=== PATIENT | male | born 1950 | race Caucasian/White ===

== ENCOUNTER → 2018-12-15 | Outpatient (CLI) | payer MEDICARE, OTHER ==
--- NOTE | 2018-12-15 16:04 | US ---
EXAMINATION TYPE: US scrotum with doppler. Grayscale and color Doppler Duplex imaging performed of t he scrotum. DATE OF EXAM: 12/15/2018 COMPARISON: NONE CLINICAL HISTORY: N50.819 Testicular pain. Right side pain lateral to right teste. Hx vasectomy at a ge 32. Hx right inguinal hernia with mesh x 3 years ago EXAM MEASUREMENTS: TESTICLES: Right Testicle: 4.1 x 3.3 x 2.5 cm Left Testicle: 3.4 x 2.8 x 3.3 cm EPIDIDYMIS HEAD: Right Epididymis: 0.8 x 1.1 x 0.8 cm Left Epididymis: 1.1 x 1.2 x 0.8 cm Doppler performed to assess for testicular vascularity; good bilateral color flow and waveforms are s een. There is no evidence of testicular torsion. Presence of hydroceles: small bilaterally Presence of varicoceles: no Area of pain scanned. Possible break visualized with bowel seen. IMPRESSION: 1. Small hydroceles noted bilaterally. No evidence for lesion or torsion. 2. Possible right inguinal hernia. Correlate clinically.
== END | disposition home or self-care (01) ==
LOC: RADUSWWP 15:20
PROVIDERS: ATTEND Family Medicine
DX: N43.3 Hydrocele, unspecified (principal)
CPT/HCPCS: 76870; 93975

== ENCOUNTER 2019-02-26 08:22 | Emergency (ER) | payer MEDICARE, OTHER ==
[2019-02-26 08:26] VITALS: RESP 18; TEMP 97.8
[2019-02-26] MEDS ORDERED: SODIUM CHLORIDE 0.9% 1,000 ML IV STA (08:33)
[2019-02-26] MEDS ORDERED: ONDANSETRON 4 MG/2 ML VIAL IVP STA (08:33)
[2019-02-26] MEDS ORDERED: MAG HYDROX/AL HYDROX/SIMETH 30 ML, HYOSCYAMINE ELIXIR 10 ML, CIMETIDINE HCL 300 MG, LID... PO STA ×4 (08:35)
[2019-02-26] MEDS ORDERED: PANTOPRAZOLE 40 MG/10 ML VIAL IVP STA (08:35)
--- NOTE | 2019-02-26 08:58 | ED ---
Abdominal Pain HPI - General Source: patient, RN notes reviewed Mode of arrival: ambulatory Limitations: no limitations <Christiano Bernstein - Last Filed: 02/26/19 10:42> <El Ly - Last Filed: 02/26/19 13:49> - General Chief Complaint: Abdominal Pain Stated Complaint: epigastric pain Time Seen by Provider: 02/26/19 08:28 - History of Present Illness Initial Comments: This a 68-year-old male presents emergency Department with chief complaint of epigastric abdominal discomfort. Patient states has been bothersome for last few days states it is a burning sensation radiate up into his chest. Patient states he did take some Pepcid last night which improved his symptoms. Patient has had a prior colostomy no prior EGD. Patient denies, chills, melena, hematochezia. Patient had some nausea no vomiting. Patient complains no chest pain or shortness breath this time. (Christiano Bernstein) - Related Data Home Medications Medication Instructions Recorded Confirmed Albuterol Sulfate [Proair Hfa] 2 puff INHALATION RT-Q6H PRN 02/26/19 02/26/19 Azelastine HCl [Astepro] 2 spray EA NOSTRIL DAILY 02/26/19 02/26/19 Desloratadine [Clarinex] 5 mg PO DAILY 02/26/19 02/26/19 Fosinopril Sodium [Monopril] 20 mg PO DAILY 02/26/19 02/26/19 Polyethylene Glycol 3350 [Miralax] 17 gm PO DAILY PRN 02/26/19 02/26/19 Tadalafil [Cialis] 20 mg PO DAILY 02/26/19 02/26/19 Tamsulosin [Flomax] 0.4 mg PO DAILY 02/26/19 02/26/19 Previous Rx's Medication Instructions Recorded Omeprazole 40 mg PO DAILY #14 capsule. 02/26/19 Allergies Allergy/AdvReac Type Severity Reaction Status Date / Time hydrocodone bitartrate Allergy Rash/Hives Verified 02/26/19 09:33 [From Vicodin] Review of Systems ROS Other: All systems not noted in ROS Statement are negative. <Christiano Bernstein - Last Filed: 02/26/19 10:42> ROS Other: All systems not noted in ROS Statement are negative. <El Ly - Last Filed: 02/26/19 13:49> ROS Statement: Those systems with pertinent positive or pertinent negative responses have been documented in the HPI. Past Medical History Past Medical History: Hypertension, Osteoarthritis (OA) Additional Past Medical History / Comment(s): retinal detachment History of Any Multi-Drug Resistant Organisms: None Reported Past Surgical History: Hernia Repair, Joint Replacement, Orthopedic Surgery Additional Past Surgical History / Comment(s): numerous knee and geo feet, inguinal hernia Past Psychological History: No Psychological Hx Reported Smoking Status: Never smoker Past Alcohol Use History: None Reported Past Drug Use History: None Reported <Christiano Bernstein - Last Filed: 02/26/19 10:42> General Exam Limitations: no limitations General appearance: alert, in no apparent distress Head exam: Present: atraumatic, normocephalic, normal inspection Eye exam: Present: normal appearance, PERRL, EOMI. Absent: scleral icterus, conjunctival injection, periorbital swelling ENT exam: Present: normal exam, mucous membranes moist Neck exam: Present: normal inspection. Absent: tenderness, meningismus, lymphadenopathy Respiratory exam: Present: normal lung sounds bilaterally. Absent: respiratory distress, wheezes, rales, rhonchi, stridor Cardiovascular Exam: Present: regular rate, normal rhythm, normal heart sounds. Absent: systolic murmur, diastolic murmur, rubs, gallop, clicks GI/Abdominal exam: Present: soft, tenderness (Mild epigastric, left upper quadrant), normal bowel sounds. Absent: distended, guarding, rebound, rigid Back exam: Absent: CVA tenderness (R), CVA tenderness (L) Skin exam: Present: warm, dry, intact, normal color. Absent: rash <Christiano Bernstein - Last Filed: 02/26/19 10:42> Course <Christiano Bernstein - Last Filed: 02/26/19 10:42> <El Ly - Last Filed: 02/26/19 13:49> Vital Signs 02/26/19 02/26/19 08:24 11:11 Temperature 97.8 F 97.8 F Pulse Rate 77 70 Respiratory 18 18 Rate Blood Pressure 158/91 116/77 O2 Sat by Pulse 98 95 Oximetry - Reevaluation(s) Reevaluation #1: 02/26/19 10:42 Patient reevaluated and updated on results. Patient improved after GI cocktail. (Christiano Bernstein) Reevaluation #2: 02/26/19 13:48 PA supervision: I personally evaluate this case including the history and physical aspects. Patient does present with symptoms consistent with GERD. I do agree with the assessment and plan. (El Ly) Medical Decision Making - Lab Data Result diagrams: 02/26/19 09:25 02/26/19 09:25 <Christiano Bernstein - Last Filed: 02/26/19 10:42> - Lab Data Result diagrams: 02/26/19 09:25 02/26/19 09:25 <El Ly - Last Filed: 02/26/19 13:49> - Medical Decision Making 68 show male presented for abdominal discomfort, reflux issues. Patient had lab work, x-ray will have a hernia, EKG and urinalysis. Labs, urinalysis and EKG unremarkable. Patient improved after GI cocktail. Patient will be discharged on omeprazole. he'll follow-up with on-call GI and return for any worsening symptoms. (Christiano Bernstein) - Lab Data Lab Results 02/26/19 02/26/19 02/26/19 Range/Units 09:25 09:25 09:25 WBC 6.5 (3.8-10.6) k/uL RBC 4.34 (4.30-5.90) m/uL Hgb 14.2 (13.0-17.5) gm/dL Hct 41.5 (39.0-53.0) % MCV 95.7 (80.0-100.0) fL MCH 32.8 (25.0-35.0) pg MCHC 34.3 (31.0-37.0) g/dL RDW 13.3 (11.5-15.5) % Plt Count 226 (150-450) k/uL Neutrophils % 66 % Lymphocytes % 21 % Monocytes % 8 % Eosinophils % 1 % Basophils % 0 % Neutrophils # 4.3 (1.3-7.7) k/uL Lymphocytes # 1.4 (1.0-4.8) k/uL Monocytes # 0.5 (0-1.0) k/uL Eosinophils # 0.1 (0-0.7) k/uL Basophils # 0.0 (0-0.2) k/uL Sodium 141 (137-145) mmol/L Potassium 4.3 (3.5-5.1) mmol/L Chloride 107 (98-107) mmol/L Carbon Dioxide 27 (22-30) mmol/L Anion Gap 7 mmol/L BUN 12 (9-20) mg/dL Creatinine 0.95 (0.66-1.25) mg/dL Est GFR (CKD-EPI)AfAm >90 (>60 ml/min/1.73 sqM) Est GFR (CKD-EPI)NonAf 84 (>60 ml/min/1.73 sqM) Glucose 99 (74-99) mg/dL Calcium 9.8 (8.4-10.2) mg/dL Total Bilirubin 0.9 (0.2-1.3) mg/dL AST 21 (17-59) U/L ALT 32 (21-72) U/L Alkaline Phosphatase 135 H (38-126) U/L Troponin I <0.012 (0.000-0.034) ng/mL Total Protein 6.8 (6.3-8.2) g/dL Albumin 4.0 (3.5-5.0) g/dL Lipase 80 (23-300) U/L Urine Color Urine Appearance (Clear) Urine pH (5.0-8.0) Ur Specific [place] (1.001-1.035) Urine Protein (Negative) Urine Glucose (UA) (Negative) Urine Ketones (Negative) Urine Blood (Negative) Urine Nitrite (Negative) Urine Bilirubin (Negative) Urine Urobilinogen (<2.0) mg/dL Ur Leukocyte Esterase (Negative) Urine RBC (0-5) /hpf Urine WBC (0-5) /hpf Hyaline Casts (0-2) /lpf Urine Mucus (None) /hpf 02/26/19 Range/Units 10:20 WBC (3.8-10.6) k/uL RBC (4.30-5.90) m/uL Hgb (13.0-17.5) gm/dL Hct (39.0-53.0) % MCV (80.0-100.0) fL MCH (25.0-35.0) pg MCHC (31.0-37.0) g/dL RDW (11.5-15.5) % Plt Count (150-450) k/uL Neutrophils % % Lymphocytes % % Monocytes % % Eosinophils % % Basophils % % Neutrophils # (1.3-7.7) k/uL Lymphocytes # (1.0-4.8) k/uL Monocytes # (0-1.0) k/uL Eosinophils # (0-0.7) k/uL Basophils # (0-0.2) k/uL Sodium (137-145) mmol/L Potassium (3.5-5.1) mmol/L Chloride (98-107) mmol/L Carbon Dioxide (22-30) mmol/L Anion Gap mmol/L BUN (9-20) mg/dL Creatinine (0.66-1.25) mg/dL Est GFR (CKD-EPI)AfAm (>60 ml/min/1.73 sqM) Est GFR (CKD-EPI)NonAf (>60 ml/min/1.73 sqM) Glucose (74-99) mg/dL Calcium (8.4-10.2) mg/dL Total Bilirubin (0.2-1.3) mg/dL AST (17-59) U/L ALT (21-72) U/L Alkaline Phosphatase (38-126) U/L Troponin I (0.000-0.034) ng/mL Total Protein (6.3-8.2) g/dL Albumin (3.5-5.0) g/dL Lipase (23-300) U/L Urine Color Yellow Urine Appearance Clear (Clear) Urine pH 5.5 (5.0-8.0) Ur Specific [place] 1.020 (1.001-1.035) Urine Protein Negative (Negative) Urine Glucose (UA) Negative (Negative) Urine Ketones 1+ H (Negative) Urine Blood Small H (Negative) Urine Nitrite Negative (Negative) Urine Bilirubin Negative (Negative) Urine Urobilinogen <2.0 (<2.0) mg/dL Ur Leukocyte Esterase Negative (Negative) Urine RBC 4 (0-5) /hpf Urine WBC 1 (0-5) /hpf Hyaline Casts 18 H (0-2) /lpf Urine Mucus Few H (None) /hpf 02/26/19 10:44 EKG performed at 8:55 sinus rhythm with PVC, rate of 79 ND 134 QRS 72 QT s/QTC 376/431 (Christiano Bernstein) Disposition Is patient prescribed a controlled substance at d/c from ED?: No Time of Disposition: 10:44 <Christiano Bernstein - Last Filed: 02/26/19 10:42> <El Ly - Last Filed: 02/26/19 13:49> Clinical Impression: GERD (gastroesophageal reflux disease) Disposition: HOME SELF-CARE Condition: Stable Instructions (If sedation given, give patient instructions): Diet for Stomach Ulcers and Gastritis (ED), Gastroesophageal Reflux Disease (ED) Additional Instructions: Please return to the Emergency Department if symptoms worsen or any other concerns. Prescriptions: Omeprazole 40 mg PO DAILY #14 capsule.dr Referrals: Grace Bass III, MD [Primary Care Provider] - 1-2 days Donna Thompson MD [STAFF PHYSICIAN] - 1-2 days
[2019-02-26 09:35] LABS: Basophils % (A) 0 %; Eosinophils # (A) 0.1 k/uL (0-0.7); Eosinophils % (A) 1 %; HCT 41.5 % (39.0-53.0); HGB 14.2 gm/dL (13.0-17.5); Lymphocytes # (A) 1.4 k/uL (1.0-4.8); Lymphocytes % (A) 21 %; MCH 32.8 pg (25.0-35.0); MCHC 34.3 g/dL (31.0-37.0); MCV 95.7 fL (80.0-100.0); Mean Platelet Volume 6.9; Monocytes # (A) 0.5 k/uL (0-1.0); Monocytes % (A) 8 %; Neutrophils # (A) 4.3 k/uL (1.3-7.7); Neutrophils % (A) 66 %; Platelet Count 226 k/uL (150-450); RBC 4.34 m/uL (4.30-5.90); RDW 13.3 % (11.5-15.5); WBC 6.5 k/uL (3.8-10.6)
[2019-02-26 09:48] LABS: ALT 32 U/L (21-72); AST 21 U/L (17-59); Alkaline Phosphatase 135 U/L (38-126); Anion Gap 7 mmol/L; Blood Urea Nitrogen 12 mg/dL (9-20); Calcium 9.8 mg/dL (8.4-10.2); Carbon Dioxide 27 mmol/L (22-30); Chloride 107 mmol/L (98-107); Glucose 99 mg/dL (74-99); Lipase 80 U/L (23-300); Potassium 4.3 mmol/L (3.5-5.1); Sodium 141 mmol/L (137-145); Total Bilirubin 0.9 mg/dL (0.2-1.3); Total Protein 6.8 g/dL (6.3-8.2)
--- NOTE | 2019-02-26 10:27 | XR ---
EXAMINATION TYPE: XR chest 1V DATE OF EXAM: 02/26/2019 COMPARISON: NONE HISTORY: 68-year-old male with chest pain TECHNIQUE: Single frontal view of the chest is obtained. FINDINGS: Heart normal size. Aorta and pulmonary vasculature within normal limits. Mild interstitial prominence has a chronic appearance. Some stranding areas of atelectasis are present particularly at the left b ase. No consolidation or pleural effusion seen. IMPRESSION: Chronic appearing changes and some strandy areas of atelectasis. No definite acute process.
--- NOTE | 2019-02-26 10:28 | XR ---
EXAMINATION TYPE: XR KUB DATE OF EXAM: 02/26/2019 CLINICAL DATA: 68-year-old male for abdominal pain, [facility] COMPARISON: None FINDINGS: Lung bases are clear. No evidence for free intraperitoneal air. No dilated small bowel with differential air-fluid levels. Scattered air throughout the colon extending distally to the rectum. Mild stool in the cecum area. No suspicious calcifications seen. Suspect medication tablet in the right lower quadrant. IMPRESSION: No evidence for free air or bowel obstruction.
[2019-02-26 10:35] LABS: Appearance,Urine Clear (Clear); Bilirubin,Urine Negative (Negative); Blood,Urine Small (Negative); Color,Urine Yellow; Glucose,Urine (UA) Negative (Negative); Hyaline Casts,Urine 18 /lpf (0-2); Ketones,Urine 1+ (Negative); Leukocyte Esterase,Urine Negative (Negative); Mucus,Urine Few /hpf; Nitrite,Urine Negative (Negative); PH, Urine 5.5 (5.0-8.0); Protein,Urine Negative (Negative); RBC,Urine 4 /hpf (0-5); Urobilinogen,Urine <2.0 mg/dL (<2.0); WBC,Urine 1 /hpf (0-5)
[2019-02-26 11:13] VITALS: BP 116/77; PULSE 70
== END 2019-02-26 11:11 | disposition home or self-care (01) ==
LOC: EC 08:22
DX: K21.9 Gastro-esophageal reflux disease without esophagitis (principal); R10.13 Epigastric pain; R10.12 Left upper quadrant pain; R11.0 Nausea; I10 Essential (primary) hypertension; M19.90 Unspecified osteoarthritis, unspecified site; Z79.899 Other long term (current) drug therapy; Z88.5 Allergy status to narcotic agent
CPT/HCPCS: 36415; 93005; 80053; 83690; 84484; 85025; 81001; 71045; 74018; 99284; 96374; 96375; 96361 ×2; J2405; C9113

== ENCOUNTER → 2020-10-25 | Outpatient (CLI) | payer MEDICARE | END | disposition home or self-care (01) | LOC: LABWHC1 09:07 | PROVIDERS: ATTEND Nurse Practitioner Family | DX: R50.9 Fever, unspecified (principal) | CPT/HCPCS: 87502; U0003; C9803 ==

== ENCOUNTER 2020-11-02 15:42 | Inpatient (IN) | payer MEDICARE ==
[2020-11-02] MEDS ORDERED: SODIUM CHLORIDE 0.9% 1,000 ML IV ONE (16:46)
[2020-11-02 16:56] LABS: Basophils # (A) 0.2 k/uL (0-0.2); Basophils % (A) 2 %; Eosinophils % (A) 0 %; HCT 41.9 % (39.0-53.0); HGB 14.6 gm/dL (13.0-17.5); Lymphocytes # (A) 0.9 k/uL (1.0-4.8); Lymphocytes % (A) 10 %; MCH 31.7 pg (25.0-35.0); MCHC 34.7 g/dL (31.0-37.0); MCV 91.4 fL (80.0-100.0); Mean Platelet Volume 7.8; Monocytes # (A) 0.5 k/uL (0-1.0); Monocytes % (A) 5 %; Neutrophils # (A) 7.2 k/uL (1.3-7.7); Neutrophils % (A) 81 %; Platelet Count 264 k/uL (150-450); RBC 4.59 m/uL (4.30-5.90); RDW 12.5 % (11.5-15.5); WBC 8.9 k/uL (3.8-10.6)
[2020-11-02 17:07] LABS: ALT 37 U/L (4-49); AST 62 U/L (17-59); African American GFR (CKD) >90 (>60 ml/min/1.73 sqM); Albumin 3.3 g/dL (3.5-5.0); Alkaline Phosphatase 137 U/L (38-126); Anion Gap 6 mmol/L; Blood Urea Nitrogen 12 mg/dL (9-20); Calcium 9.4 mg/dL (8.4-10.2); Carbon Dioxide 31 mmol/L (22-30); Chloride 100 mmol/L (98-107); Glucose 113 mg/dL (74-99); LDH 1224 U/L (313-618); Non-African American GFR(CKD) >90 (>60 ml/min/1.73 sqM); Potassium 3.6 mmol/L (3.5-5.1); Sodium 137 mmol/L (137-145); Total Bilirubin 0.8 mg/dL (0.2-1.3)
--- NOTE | 2020-11-02 17:08 | XR ---
EXAMINATION TYPE: XR chest 1V portable DATE OF EXAM: 11/02/2020 COMPARISON: 02/26/2019 HISTORY: Fever. Cough. TECHNIQUE: FINDINGS: There is patchy airspace infiltrate in both lower lobes and more on the right side. There i s no heart failure. Heart size is normal. There is no definite pleural effusion. Bony thorax appears intact. IMPRESSION: There is bilateral pneumonia that is new compared to old exam. Normal heart.
[2020-11-02 17:09] LABS: Partial Thromboplastin Time 23.9 sec (22.0-30.0); Prothrombin Time 10.7 sec (9.0-12.0)
[2020-11-02 17:15] LABS: D-Dimer 2.31 mg/L FEU (<0.60)
[2020-11-02 17:21] LABS: C Reactive Protein 189.5 mg/L (<10.0)
[2020-11-02] MEDS ORDERED: NALOXONE 0.4 MG/ML 1 ML VIAL IV PRN (18:05)
[2020-11-02] MEDS ORDERED: ACETAMINOPHEN TAB 325 MG TAB PO PRN (18:05)
--- NOTE | 2020-11-02 18:05 | ED ---
Fever HPI - General Chief Complaint: Fever Stated Complaint: Covid Positive Time Seen by Provider: 11/02/20 16:00 Source: patient Limitations: no limitations - History of Present Illness Initial Comments: Patient is a 70-year-old male with past medical history of hypertension resents emergency department with reported shortness of breath and fever. Patient states he's been feeling ill for approximately 2 weeks. Patient states that he tested positive for covid on the . Over the past week he has had increased fever, cough and congestion. Also reports to substernal chest pain. Patient denies previous history of underlying lung conditions. No history of oxygen dependence. Denies any cardiac history. He denies nausea, vomiting or diarrhea. No other alleviating, precipitating or modifying factors - Related Data Home Medications Medication Instructions Recorded Confirmed Desloratadine [Clarinex] 5 mg PO DAILY 02/26/19 11/02/20 Tadalafil [Cialis] 20 mg PO Q36H PRN 02/26/19 11/02/20 Cholecalciferol (Vitamin D3) 125 mcg PO DAILY 11/02/20 11/02/20 [Vitamin D3] Fosinopril [Monopril] 10 mg PO DAILY 11/02/20 11/02/20 Multivit-Min/FA/Lycopen/Lutein 1 tab PO DAILY 11/02/20 11/02/20 [Centrum Silver Men Tablet] guaiFENesin-Coden 100-10MG/5ML 10 ml PO Q8H PRN 11/02/20 11/02/20 [Robitussin AC] Previous Rx's Medication Instructions Recorded Acetaminophen Tab [Tylenol] 650 mg PO Q6HR PRN tab 11/05/20 Ascorbic Acid [Vitamin C] 500 mg PO BID 30 Days #60 tab 11/05/20 Famotidine [Pepcid] 40 mg PO DAILY 30 Days #60 tab 11/05/20 Zinc Sulfate [Orazinc] 220 mg PO DAILY 30 Days #30 cap 11/05/20 dexAMETHasone [Hexadrol] 6 mg PO DAILY 8 Days #24 tab 11/05/20 polyethylene glycoL 3350 [Miralax] 17 gm PO DAILY powd.pack 11/05/20 Allergies Allergy/AdvReac Type Severity Reaction Status Date / Time hydrocodone bitartrate Allergy Rash/Hives Verified 11/02/20 18:35 [From Vicodin] Review of Systems ROS Statement: Those systems with pertinent positive or pertinent negative responses have been documented in the HPI. ROS Other: All systems not noted in ROS Statement are negative. Past Medical History Past Medical History: Hypertension, Osteoarthritis (OA) Additional Past Medical History / Comment(s): retinal detachment History of Any Multi-Drug Resistant Organisms: None Reported Past Surgical History: Bariatric Surgery, Hernia Repair, Joint Replacement, Orthopedic Surgery Additional Past Surgical History / Comment(s): numerous knee and geo feet, inguinal hernia Past Psychological History: No Psychological Hx Reported Smoking Status: Never smoker Past Alcohol Use History: None Reported Past Drug Use History: None Reported - Past Family History Mother Additional Family Medical History / Comment(s): hiatal hernia General Exam Limitations: no limitations General appearance: alert, in no apparent distress Head exam: Present: atraumatic, normocephalic, normal inspection Eye exam: Present: normal appearance, PERRL, EOMI. Absent: scleral icterus, conjunctival injection, periorbital swelling ENT exam: Present: normal exam, mucous membranes moist Neck exam: Present: normal inspection. Absent: tenderness, meningismus, lymphadenopathy Respiratory exam: Present: normal lung sounds bilaterally. Absent: respiratory distress, wheezes, rales, rhonchi, stridor Cardiovascular Exam: Present: regular rate, normal rhythm, normal heart sounds. Absent: systolic murmur, diastolic murmur, rubs, gallop, clicks GI/Abdominal exam: Present: soft, normal bowel sounds. Absent: distended, tenderness, guarding, rebound, rigid Extremities exam: Present: normal inspection, full ROM, normal capillary refill. Absent: tenderness, pedal edema, joint swelling, calf tenderness Back exam: Present: normal inspection Neurological exam: Present: alert, oriented X3, CN II-XII intact Psychiatric exam: Present: normal affect, normal mood Skin exam: Present: warm, dry, intact, normal color. Absent: rash Course Vital Signs 11/02/20 11/02/20 11/02/20 15:58 16:57 17:02 Temperature 99.9 F H Pulse Rate 96 75 Respiratory 20 18 Rate Blood Pressure 143/80 137/82 O2 Sat by Pulse 89 L 97 89 L Oximetry 11/02/20 11/02/20 11/02/20 17:03 18:52 19:00 Temperature 102 F H Pulse Rate 77 Respiratory 20 21 Rate Blood Pressure 142/95 143/81 O2 Sat by Pulse 97 95 Oximetry 11/02/20 11/02/20 19:32 19:34 Temperature 99.5 F Pulse Rate 73 Respiratory 18 Rate Blood Pressure 139/82 O2 Sat by Pulse Oximetry Medical Decision Making - Medical Decision Making Upon arrival patient is placed into room 5. Thorough history and physical exam was performed. Patient arrives and is hypoxic, 89% on room air. He is placed on nasal cannula. Laboratory studies were conducted and reviewed. D-dimer is 2.3. Lactic acid 2.1. Chest x-ray demonstrates bilateral pneumonia. CT of the patient's chest demonstrates no acute pulmonary embolism. Because the patient's hypoxia I did recommend hospital physician for which the patient did agree to. Decadron, zinc, vitamin C ordered. I will place pulmonology on consult. Patient agreed to the treatment plan. Discussed case with Dr. Sexton who accepted admission. He remained in stable condition awaiting a bed on the floor - Lab Data Result diagrams: 11/03/20 06:20 11/05/20 06:15 Lab Results 11/02/20 11/02/20 11/02/20 Range/Units 00:39 16:44 16:44 WBC 8.9 (3.8-10.6) k/uL RBC 4.59 (4.30-5.90) m/uL Hgb 14.6 (13.0-17.5) gm/dL Hct 41.9 (39.0-53.0) % MCV 91.4 (80.0-100.0) fL MCH 31.7 (25.0-35.0) pg MCHC 34.7 (31.0-37.0) g/dL RDW 12.5 (11.5-15.5) % Plt Count 264 (150-450) k/uL MPV 7.8 Neutrophils % 81 % Lymphocytes % 10 % Monocytes % 5 % Eosinophils % 0 % Basophils % 2 % Neutrophils # 7.2 (1.3-7.7) k/uL Lymphocytes # 0.9 L (1.0-4.8) k/uL Monocytes # 0.5 (0-1.0) k/uL Eosinophils # 0.0 (0-0.7) k/uL Basophils # 0.2 (0-0.2) k/uL PT 10.7 (9.0-12.0) sec INR 1.0 (<1.2) APTT 23.9 (22.0-30.0) sec D-Dimer 2.31 H (<0.60) mg/L FEU Sodium (137-145) mmol/L Potassium (3.5-5.1) mmol/L Chloride (98-107) mmol/L Carbon Dioxide (22-30) mmol/L Anion Gap mmol/L BUN (9-20) mg/dL Creatinine (0.66-1.25) mg/dL Est GFR (CKD-EPI)AfAm (>60 ml/min/1.73 sqM) Est GFR (CKD-EPI)NonAf (>60 ml/min/1.73 sqM) Glucose (74-99) mg/dL Lactic Ac Sepsis Rflx Plasma Lactic Acid Vasiliy 1.2 (0.7-2.0) mmol/L Calcium (8.4-10.2) mg/dL Magnesium (1.6-2.3) mg/dL Ferritin (22.0-322.0) ng/mL Total Bilirubin (0.2-1.3) mg/dL AST (17-59) U/L ALT (4-49) U/L Alkaline Phosphatase (38-126) U/L Lactate Dehydrogenase (313-618) U/L C-Reactive Protein (<10.0) mg/L Total Protein (6.3-8.2) g/dL Albumin (3.5-5.0) g/dL Procalcitonin (0.02-0.09) ng/mL 11/02/20 11/02/20 11/02/20 Range/Units 16:44 16:44 16:44 WBC (3.8-10.6) k/uL RBC (4.30-5.90) m/uL Hgb (13.0-17.5) gm/dL Hct (39.0-53.0) % MCV (80.0-100.0) fL MCH (25.0-35.0) pg MCHC (31.0-37.0) g/dL RDW (11.5-15.5) % Plt Count (150-450) k/uL MPV Neutrophils % % Lymphocytes % % Monocytes % % Eosinophils % % Basophils % % Neutrophils # (1.3-7.7) k/uL Lymphocytes # (1.0-4.8) k/uL Monocytes # (0-1.0) k/uL Eosinophils # (0-0.7) k/uL Basophils # (0-0.2) k/uL PT (9.0-12.0) sec INR (<1.2) APTT (22.0-30.0) sec D-Dimer (<0.60) mg/L FEU Sodium 137 (137-145) mmol/L Potassium 3.6 (3.5-5.1) mmol/L Chloride 100 (98-107) mmol/L Carbon Dioxide 31 H (22-30) mmol/L Anion Gap 6 mmol/L BUN 12 (9-20) mg/dL Creatinine 0.79 (0.66-1.25) mg/dL Est GFR (CKD-EPI)AfAm >90 (>60 ml/min/1.73 sqM) Est GFR (CKD-EPI)NonAf >90 (>60 ml/min/1.73 sqM) Glucose 113 H (74-99) mg/dL Lactic Ac Sepsis Rflx Plasma Lactic Acid Vasiliy 2.1 H* (0.7-2.0) mmol/L Calcium 9.4 (8.4-10.2) mg/dL Magnesium 2.0 (1.6-2.3) mg/dL Ferritin 809.4 H (22.0-322.0) ng/mL Total Bilirubin 0.8 (0.2-1.3) mg/dL AST 62 H (17-59) U/L ALT 37 (4-49) U/L Alkaline Phosphatase 137 H (38-126) U/L Lactate Dehydrogenase 1224 H (313-618) U/L C-Reactive Protein 189.5 H (<10.0) mg/L Total Protein 7.0 (6.3-8.2) g/dL Albumin 3.3 L (3.5-5.0) g/dL Procalcitonin 0.17 H (0.02-0.09) ng/mL 11/02/20 Range/Units 17:07 WBC (3.8-10.6) k/uL RBC (4.30-5.90) m/uL Hgb (13.0-17.5) gm/dL Hct (39.0-53.0) % MCV (80.0-100.0) fL MCH (25.0-35.0) pg MCHC (31.0-37.0) g/dL RDW (11.5-15.5) % Plt Count (150-450) k/uL MPV Neutrophils % % Lymphocytes % % Monocytes % % Eosinophils % % Basophils % % Neutrophils # (1.3-7.7) k/uL Lymphocytes # (1.0-4.8) k/uL Monocytes # (0-1.0) k/uL Eosinophils # (0-0.7) k/uL Basophils # (0-0.2) k/uL PT (9.0-12.0) sec INR (<1.2) APTT (22.0-30.0) sec D-Dimer (<0.60) mg/L FEU Sodium (137-145) mmol/L Potassium (3.5-5.1) mmol/L Chloride (98-107) mmol/L Carbon Dioxide (22-30) mmol/L Anion Gap mmol/L BUN (9-20) mg/dL Creatinine (0.66-1.25) mg/dL Est GFR (CKD-EPI)AfAm (>60 ml/min/1.73 sqM) Est GFR (CKD-EPI)NonAf (>60 ml/min/1.73 sqM) Glucose (74-99) mg/dL Lactic Ac Sepsis Rflx Y Plasma Lactic Acid Vasiliy (0.7-2.0) mmol/L Calcium (8.4-10.2) mg/dL Magnesium (1.6-2.3) mg/dL Ferritin (22.0-322.0) ng/mL Total Bilirubin (0.2-1.3) mg/dL AST (17-59) U/L ALT (4-49) U/L Alkaline Phosphatase (38-126) U/L Lactate Dehydrogenase (313-618) U/L C-Reactive Protein (<10.0) mg/L Total Protein (6.3-8.2) g/dL Albumin (3.5-5.0) g/dL Procalcitonin (0.02-0.09) ng/mL - EKG Data EKG Comments: EKG demonstrates a normal sinus rhythm with a ventricular rate of 86. GA interval 128. QRS 96. QTC of 464. Q wave in lead 3. No acute ST segment elevations Disposition Clinical Impression: Hypoxia, COVID-19 Disposition: ADMITTED IP TO THIS HOSP Condition: Stable Is patient prescribed a controlled substance at d/c from ED?: No Decision to Admit Reason: Admit from EC Decision Date: 11/02/20 Decision Time: 18:05
--- NOTE | 2020-11-02 18:40 | CT ---
EXAMINATION TYPE: CT chest angio for PE DATE OF EXAM: 11/02/2020 COMPARISON: None HISTORY: Elevated d-dimer, covid, hypoxia CT DLP: 307.4 mGycm Automated exposure control for dose reduction was used. CONTRAST: Performed with IV Contrast, patient injected with 100 mL of Isovue 370. There are 3-D post processed images. There is patchy bilateral pulmonary interstitial and airspace infiltrates. There is some coalescent d ensity in the lower lobes. Heart size is fairly normal. There is no pericardial effusion. There is no mediastinal adenopathy. There are no hilar masses. There is normal contrast opacification of the pulmonary arteries. There are no filling defects. Thora cic aorta is intact. There is no aneurysm or dissection. There are a few bronchial lymph nodes measur ing up to 1 cm. Bony thorax is intact. There is no compression fracture. IMPRESSION: No evidence of pulmonary embolism. Extensive bilateral pulmonary infiltrates with mild bronchial adenopathy and consistent with pneumoni a.
[2020-11-02] MEDS: DEXAMETHASONE SOD PHOSPHATE 10 MG/ML 1 ML VIAL IV SCH (19:32)
[2020-11-02] MEDS: ZINC SULFATE 220 MG CAP PO SCH (21:04)
[2020-11-02] MEDS: ASCORBIC ACID 500 MG TAB PO SCH (21:04)
[2020-11-02] MEDS: ENOXAPARIN 40 MG/0.4 ML SYRINGE SQ SCH (21:05)
[2020-11-02 23:15] LABS: Ferritin 809.4 ng/mL (22.0-322.0)
[2020-11-03 06:44] LABS: Basophils % (A) 1 %; Eosinophils % (A) 0 %; HCT 39.8 % (39.0-53.0); HGB 13.9 gm/dL (13.0-17.5); Lymphocytes # (A) 0.9 k/uL (1.0-4.8); Lymphocytes % (A) 14 %; MCHC 34.9 g/dL (31.0-37.0); MCV 91.8 fL (80.0-100.0); Monocytes # (A) 0.2 k/uL (0-1.0); Monocytes % (A) 4 %; Neutrophils # (A) 5.1 k/uL (1.3-7.7); Neutrophils % (A) 80 %; Platelet Count 242 k/uL (150-450); RBC 4.34 m/uL (4.30-5.90); RDW 12.5 % (11.5-15.5); WBC 6.4 k/uL (3.8-10.6)
[2020-11-03] MEDS: ZINC SULFATE 220 MG CAP PO SCH (08:28)
[2020-11-03] MEDS: ENOXAPARIN 40 MG/0.4 ML SYRINGE SQ SCH (08:28)
[2020-11-03] MEDS: CHOLECALCIFEROL 1,000 UNIT TAB PO SCH (08:28)
[2020-11-03] MEDS: lisinopriL 10 MG TAB PO SCH (08:29)
[2020-11-03] MEDS: FAMOTIDINE 20 MG TAB PO SCH (08:29)
[2020-11-03] MEDS: ASCORBIC ACID 500 MG TAB PO SCH ×2 (08:29→20:43)
[2020-11-03] MEDS: MULTIVITAMINS, THERA 1 EACH TAB PO SCH (08:29)
[2020-11-03] MEDS: DEXAMETHASONE SOD PHOSPHATE 10 MG/ML 1 ML VIAL IV SCH (08:45)
[2020-11-03] MEDS ORDERED: LORATADINE 10 MG TAB PO SCH (09:00)
[2020-11-03 09:45] LABS: African American GFR (CKD) 112.4 (60.0-200.0); Anion Gap 7.6 mmol/L (4.00-12.00); BUN/Creat Ratio 18.57 Ratio (12.00-20.00); Calcium 9.2 mg/dL (8.7-10.3); Carbon Dioxide 31.4 mmol/L (21.6-31.8); Potassium 3.6 mmol/L (3.5-5.5)
[2020-11-03] MEDS ORDERED: POTASSIUM CHLORIDE ER 20 MEQ TAB.ER PO STA (11:14)
--- NOTE | 2020-11-03 11:14 | P.HPIM ---
History of Present Illness Patient is a 70-year-old male came in with complaints of her shortness of breath fever has been going on for about 2 weeks cough congestion patient was diagnosed with Covid 19 on the 18 of this month. Patient was comparing of substernal pleuritic pain patient also has an episodes of nonsustained VT and PACs, PVCs, patient to magnesium is normal potassium is bit low which will be replaced and will monitor him on telemetry patient is presently on [address] angios the chest did not show any PE Review of Systems REVIEW OF SYSTEMS: CONSTITUTIONAL: As mentioned in HPI HEENT: No recent visual problems or hearing problems. Denied any sore throat. CARDIOVASCULAR: No chest pain, orthopnea, PND, no palpitations, no syncope. PULMONARY no hemoptysis. GASTROINTESTINAL: No diarrhea, no nausea, no vomiting, no abdominal pain. NEUROLOGICAL: No headaches, no weakness, no numbness. HEMATOLOGICAL: Denies any bleeding or petechiae. GENITOURINARY: Denies any burning micturition, frequency, or urgency. MUSCULOSKELETAL/RHEUMATOLOGICAL: Denies any joint pain, swelling, or any muscle pain. ENDOCRINE: Denies any polyuria or polydipsia. The rest of the 14-point review of systems is negative. Past Medical History Past Medical History: Hypertension, Osteoarthritis (OA) Additional Past Medical History / Comment(s): retinal detachment History of Any Multi-Drug Resistant Organisms: None Reported Past Surgical History: Bariatric Surgery, Hernia Repair, Joint Replacement, O rthopedic Surgery Additional Past Surgical History / Comment(s): numerous knee and geo feet, inguinal hernia Past Anesthesia/Blood Transfusion Reactions: No Reported Reaction Past Psychological History: No Psychological Hx Reported Smoking Status: Never smoker Past Alcohol Use History: None Reported Past Drug Use History: None Reported - Past Family History Mother Additional Family Medical History / Comment(s): hiatal hernia Medications and Allergies Home Medications Medication Instructions Recorded Confirmed Type Desloratadine [Clarinex] 5 mg PO DAILY 02/26/19 11/02/20 History Tadalafil [Cialis] 20 mg PO Q36H PRN 02/26/19 11/02/20 History Cholecalciferol (Vitamin D3) 125 mcg PO DAILY 11/02/20 11/02/20 History [Vitamin D3] Fosinopril [Monopril] 10 mg PO DAILY 11/02/20 11/02/20 History Multivit-Min/FA/Lycopen/Lutein 1 tab PO DAILY 11/02/20 11/02/20 History [Centrum Silver Men Tablet] guaiFENesin-Coden 100-10MG/5ML 10 ml PO Q8H PRN 11/02/20 11/02/20 History [Robitussin AC] Allergies Allergy/AdvReac Type Severity Reaction Status Date / Time hydrocodone bitartrate Allergy Rash/Hives Verified 11/02/20 18:35 [From Vicodin] Physical Exam Vitals: Vital Signs Temp Pulse Pulse Resp BP BP Pulse Ox 11/03/20 06:33 97.4 F L 11/03/20 04:02 52 L 19 140/74 91 L 11/02/20 20:33 97.7 F 66 18 135/64 96 11/02/20 19:34 73 18 139/82 11/02/20 19:32 99.5 F 11/02/20 19:00 143/81 95 11/02/20 18:52 102 F H 77 21 142/95 97 11/02/20 17:03 20 11/02/20 17:02 89 L 11/02/20 16:57 75 18 137/82 97 11/02/20 15:58 99.9 F H 96 20 143/80 89 L Intake and Output 11/02/20 11/03/20 11/03/20 22:59 06:59 14:59 Other: Voiding Method Toilet # Voids 1 2 # Bowel Movements 1 Weight 81 kg PHYSICAL EXAMINATION: GENERAL: The patient is alert and oriented x3, not in any acute distress. Well developed, well nourished. HEENT: Pupils are round and equally reacting to light. EOMI. No scleral icterus. No conjunctival pallor. Normocephalic, atraumatic. No pharyngeal erythema. No thyromegaly. CARDIOVASCULAR: S1 and S2 present. No murmurs, rubs, or gallops. PULMONARY: Chest is clear to auscultation, no wheezing or crackles. ABDOMEN: Soft, nontender, nondistended, normoactive bowel sounds. No palpable organomegaly. MUSCULOSKELETAL: No joint swelling or deformity. EXTREMITIES: No cyanosis, clubbing, or pedal edema. NEUROLOGICAL: Gross neurological examination did not reveal any focal deficits. SKIN: No rashes. Results CBC & Chem 7: 11/03/20 06:20 11/03/20 06:20 Labs: Abnormal Lab Results - Last 24 Hours (Table) 11/02/20 11/02/20 11/02/20 Range/Units 16:44 16:44 16:44 Lymphocytes # 0.9 L (1.0-4.8) k/uL D-Dimer 2.31 H (<0.60) mg/L FEU Carbon Dioxide 31 H (22-30) mmol/L Glucose 113 H (74-99) mg/dL Plasma Lactic Acid Vasiliy (0.7-2.0) mmol/L Ferritin 809.4 H (22.0-322.0) ng/mL AST 62 H (17-59) U/L Alkaline Phosphatase 137 H (38-126) U/L Lactate Dehydrogenase 1224 H (313-618) U/L C-Reactive Protein 189.5 H (<10.0) mg/L Albumin 3.3 L (3.5-5.0) g/dL Procalcitonin (0.02-0.09) ng/mL 11/02/20 11/02/20 11/03/20 Range/Units 16:44 16:44 06:20 Lymphocytes # 0.9 L (1.0-4.8) k/uL D-Dimer (<0.60) mg/L FEU Carbon Dioxide (22-30) mmol/L Glucose (74-99) mg/dL Plasma Lactic Acid Vasiliy 2.1 H* (0.7-2.0) mmol/L Ferritin (22.0-322.0) ng/mL AST (17-59) U/L Alkaline Phosphatase (38-126) U/L Lactate Dehydrogenase (313-618) U/L C-Reactive Protein (<10.0) mg/L Albumin (3.5-5.0) g/dL Procalcitonin 0.17 H (0.02-0.09) ng/mL 11/03/20 Range/Units 06:20 Lymphocytes # (1.0-4.8) k/uL D-Dimer (<0.60) mg/L FEU Carbon Dioxide (22-30) mmol/L Glucose 152 H (74-99) mg/dL Plasma Lactic Acid Vasiliy (0.7-2.0) mmol/L Ferritin (22.0-322.0) ng/mL AST (17-59) U/L Alkaline Phosphatase (38-126) U/L Lactate Dehydrogenase (313-618) U/L C-Reactive Protein (<10.0) mg/L Albumin (3.5-5.0) g/dL Procalcitonin (0.02-0.09) ng/mL Thrombosis Risk Factor Assmnt - Choose All That Apply Each Factor Represents 1 point: Obesity (BMI >25) Other Risk Factors: Yes Each Risk Factor Represents 2 Points: Age 61-74 years Other congenital or acquired thrombophilia - If yes, enter type in comment: No Thrombosis Risk Factor Assessment Total Risk Factor Score: 3 Thrombosis Risk Factor Assessment Level: Moderate Risk Assessment and Plan Plan: -Shortness of breath, hypoxemia: Secondary to cold with 19 pneumonia patient will be continued on not Decadron, Pepcid monitor inflammatory markers. -Episodes of PACs and PVCs: Replace potassium. Considering patient had some chest pain , obtain troponin -Hypertension -DVT prophylaxis with Lovenox
--- NOTE | 2020-11-03 12:52 | P.CNPUL ---
History of Present Illness Consult date: 11/03/20 Requesting physician: Doc Sexton Reason for consult: dyspnea, abnormal CXR/CT Chief complaint: Shortness of breath, fever, weakness History of present illness: This is a very pleasant 70-year-old gentleman who follows with Dr. Bass is his primary care provider. He has a history of hypertension, osteoarthritis, previous bariatric surgery. On October 17 or the patient developed shortness of breath, cough congestion fever, chills. After no significant improvement he was tested positive for CoVID 19 infection on 10/25/2020. He presented here to the emergency room yesterday with ongoing symptoms and worsening shortness of breath. He is also having some chest discomfort. EKG revealed sinus rhythm with occasional PACs. No significant ST or T wave abnormalities. CT angiogram ruled out pulmonary embolism. There was however extensive bilateral pulmonary infiltrates and mild bronchial adenopathy consistent with pneumonia. White count 6.4. Hemoglobin 13.9. Lymphocytes 0.9. D-dimer 2.31. Sodium 143. Potassium 3.6. Creatinine 0.7. LDH 1224, ferritin 809, C-reactive protein 189. Pro-calcitonin 0.17. Troponin negative 1. He's been initiated on dexamethasone, Lovenox, Pepcid, vitamin C, D and zinc. He is outside the window for Remdesivir. He is seen today in consultation on the regular medical floor. He is currently awake and alert in no acute distress. Resting quite comfortably in bed. Maintaining good O2 saturations in the 90s on 2 L/m per nasal cannula. He is afebrile. Hemodynamically stable. Review of Systems REVIEW OF SYSTEMS: CONSTITUTIONAL: Fever, weakness. Fatigue. Denies any recent significant weight loss or weight gain. EYES: Denies change in vision. EARS, NOSE, MOUTH, THROAT: Denies headaches, denies sore throat. CARDIOVASCULAR: Positive for atypical chest pain, no palpitations or syncopal episodes. RESPIRATORY: Positive for shortness of breath, cough, congestion no hemoptysis. GASTROINTESTINAL: Denies change in appetite, denies abdominal pain GENITOURINARY: Denies hematuria, denies infections. MUSKULOSKELETAL: Denies pain, denies swelling. INTEGUMENTARY: Denies rash, denies eczema. NEUROLOGICAL: Denies recent memory loss, no recent seizure activity. PSYCHIATRIC: Denies anxiety, denies depression. HEMATOLOGIC/LYMPHATIC: Denies anemia, denies enlarged lymph nodes. Past Medical History Past Medical History: Hypertension, Osteoarthritis (OA) Additional Past Medical History / Comment(s): retinal detachment History of Any Multi-Drug Resistant Organisms: None Reported Past Surgical History: Bariatric Surgery, Hernia Repair, Joint Replacement, Orthopedic Surgery Additional Past Surgical History / Comment(s): numerous knee and geo feet, inguinal hernia Past Anesthesia/Blood Transfusion Reactions: No Reported Reaction Past Psychological History: No Psychological Hx Reported Smoking Status: Never smoker Past Alcohol Use History: None Reported Past Drug Use History: None Reported - Past Family History Mother Additional Family Medical History / Comment(s): hiatal hernia Medications and Allergies Home Medications Medication Instructions Recorded Confirmed Type Desloratadine [Clarinex] 5 mg PO DAILY 02/26/19 11/02/20 History Tadalafil [Cialis] 20 mg PO Q36H PRN 02/26/19 11/02/20 History Cholecalciferol (Vitamin D3) 125 mcg PO DAILY 11/02/20 11/02/20 History [Vitamin D3] Fosinopril [Monopril] 10 mg PO DAILY 11/02/20 11/02/20 History Multivit-Min/FA/Lycopen/Lutein 1 tab PO DAILY 11/02/20 11/02/20 History [Centrum Silver Men Tablet] guaiFENesin-Coden 100-10MG/5ML 10 ml PO Q8H PRN 11/02/20 11/02/20 History [Robitussin AC] Allergies Allergy/AdvReac Type Severity Reaction Status Date / Time hydrocodone bitartrate Allergy Rash/Hives Verified 11/02/20 18:35 [From Vicodin] Physical Exam Vitals: Vital Signs Temp Pulse Pulse Resp BP BP Pulse Ox 11/03/20 06:33 97.4 F L 11/03/20 04:02 52 L 19 140/74 91 L 11/02/20 20:33 97.7 F 66 18 135/64 96 11/02/20 19:34 73 18 139/82 11/02/20 19:32 99.5 F 11/02/20 19:00 143/81 95 11/02/20 18:52 102 F H 77 21 142/95 97 11/02/20 17:03 20 11/02/20 17:02 89 L 11/02/20 16:57 75 18 137/82 97 11/02/20 15:58 99.9 F H 96 20 143/80 89 L Intake and Output 11/02/20 11/03/20 11/03/20 22:59 06:59 14:59 Other: Voiding Method Toilet # Voids 1 2 # Bowel Movements 1 Weight 81 kg GENERAL EXAM: Alert, very pleasant 62-year-old gentleman, on 2 L nasal cannula, comfortable in no apparent distress. HEAD: Normocephalic. EYES: Normal reaction of pupils, equal size. NOSE: Clear with pink turbinates. THROAT: No erythema or exudates. NECK: No masses, no JVD. CHEST: No chest wall deformity. LUNGS: Equal air entry with bibasilar crackles. CVS: S1 and S2 normal with no audible murmur, regular rhythm. ABDOMEN: No hepatosplenomegaly, normal bowel sounds, no guarding or rigidity. SPINE: No scoliosis or deformity SKIN: No rashes CENTRAL NERVOUS SYSTEM: No focal deficits, tone is normal in all 4 extremities. EXTREMITIES: There is no peripheral edema. No clubbing, no cyanosis. Peripheral pulses are intact. Results - Laboratory Findings CBC and BMP: 11/03/20 06:20 11/03/20 06:20 PT/INR, D-dimer PT 10.7 sec (9.0-12.0) 11/02/20 16:44 INR 1.0 (<1.2) 11/02/20 16:44 D-Dimer 2.31 mg/L FEU (<0.60) H 11/02/20 16:44 Abnormal lab findings: Abnormal Labs 11/02/20 11/02/20 11/02/20 16:44 16:44 16:44 Lymphocytes # 0.9 L D-Dimer 2.31 H Carbon Dioxide 31 H Glucose 113 H Plasma Lactic Acid Vasiliy Ferritin 809.4 H AST 62 H Alkaline Phosphatase 137 H Lactate Dehydrogenase 1224 H C-Reactive Protein 189.5 H Albumin 3.3 L Procalcitonin 11/02/20 11/02/20 11/03/20 16:44 16:44 06:20 Lymphocytes # 0.9 L D-Dimer Carbon Dioxide Glucose Plasma Lactic Acid Vasiliy 2.1 H* Ferritin AST Alkaline Phosphatase Lactate Dehydrogenase C-Reactive Protein Albumin Procalcitonin 0.17 H 11/03/20 06:20 Lymphocytes # D-Dimer Carbon Dioxide Glucose 152 H Plasma Lactic Acid Vasiliy Ferritin AST Alkaline Phosphatase Lactate Dehydrogenase C-Reactive Protein Albumin Procalcitonin - Diagnostic Findings Chest x-ray: image reviewed CT scan - chest: image reviewed Assessment and Plan Assessment: 1 Acute hypoxic respiratory failure secondary to acute CoVID 19 pneumonitis. Initial symptoms 10/17/2020, CoVID test positive 10/25/2020. Outside the window for Remdesivir. 2 Febrile illness secondary to above 3 Elevated inflammatory markers secondary to above 4 Hypertension 5 Osteoarthritis 6 History of bariatric surgery Plan: The patient was seen and evaluated by Dr. Lozano Chest x-ray, CAT scans and labs reviewed Outside the window for Remdesivir We'll plan to transfuse 2 units of convalescent plasma Continue dexamethasone, Lovenox, vitamin supplement Repeat chest x-ray and inflammatory markers in the a.m. We will continue to follow and make further recommendations based on his clinical status I, the cosigning physician, performed a history & physical examination of the patient. Lungs sounds with bibasilar crackles. Maintaining good O2 saturations in the 90s on 2 L/m per nasal cannula. I discussed the assessment and plan of care with my nurse practitioner, Alexandra Rosales. I attest to the above consultation as dictated by her. Time with Patient: Greater than 30
[2020-11-03] MEDS: MELATONIN 5 MG TABLET PO SCH (20:43)
[2020-11-03] MEDS: LORATADINE-PSEUDOEPH 5-120 MG 1 EACH TAB.ER.12H PO PRN (22:01)
[2020-11-03] MEDS: guaiFENesin-DM 100-10MG/5ML 10 ML CUP PO PRN (22:02)
--- NOTE | 2020-11-04 07:08 | XR ---
EXAMINATION TYPE: XR chest 1V portable DATE OF EXAM: 11/04/2020 CLINICAL HISTORY: Difficulty breathing progress study. TECHNIQUE: Single AP portable upright view of the chest is obtained. COMPARISON: Chest x-ray and CTA chest from 2 days earlier FINDINGS: Multifocal areas of increased opacity seen better on CT versus x-ray remain present. New s mall left pleural effusion. Some improved aeration may be present right lung base. Cardiac silhouette size stable and upper limits of normal. Osseous structures are intact. IMPRESSION: Persistent bilateral multifocal acute infiltrates consistent with covid 19 infection. Per haps some improved aeration right lung base. New small left pleural effusion noted.
[2020-11-04] MEDS: ASCORBIC ACID 500 MG TAB PO SCH ×2 (08:37→21:10)
[2020-11-04] MEDS: CHOLECALCIFEROL 1,000 UNIT TAB PO SCH (08:37)
[2020-11-04] MEDS: dexAMETHasone 2 MG TAB PO SCH (08:38)
[2020-11-04] MEDS: lisinopriL 10 MG TAB PO SCH (08:38)
[2020-11-04] MEDS: ZINC SULFATE 220 MG CAP PO SCH (08:38)
[2020-11-04] MEDS: FAMOTIDINE 20 MG TAB PO SCH (08:38)
[2020-11-04] MEDS: MULTIVITAMINS, THERA 1 EACH TAB PO SCH (08:38)
[2020-11-04] MEDS: ENOXAPARIN 40 MG/0.4 ML SYRINGE SQ SCH (08:38)
[2020-11-04 09:52] LABS: C Reactive Protein 7.7 mg/dL (0.0-0.8)
--- NOTE | 2020-11-04 10:45 | P.PN ---
Subjective Progress Note Date: 11/04/20 This is a very pleasant 70-year-old gentleman who follows with Dr. Bass is his primary care provider. He has a history of hypertension, osteoarthritis, previous bariatric surgery. On October 17 or the patient developed shortness of breath, cough congestion fever, chills. After no significant i mprovement he was tested positive for CoVID 19 infection on 10/25/2020. He presented here to the emergency room yesterday with ongoing symptoms and worsening shortness of breath. He is also having some chest discomfort. EKG revealed sinus rhythm with occasional PACs. No significant ST or T wave abnormalities. CT angiogram ruled out pulmonary embolism. There was however extensive bilateral pulmonary infiltrates and mild bronchial adenopathy consistent with pneumonia. White count 6.4. Hemoglobin 13.9. Lymphocytes 0.9. D-dimer 2.31. Sodium 143. Potassium 3.6. Creatinine 0.7. LDH 1224, ferritin 809, C-reactive protein 189. Pro-calcitonin 0.17. Troponin negative 1. He's been initiated on dexamethasone, Lovenox, Pepcid, vitamin C, D and zinc. He is outside the window for Remdesivir. He is seen today in consultation on the regular medical floor. He is currently awake and alert in no acute distress. Resting quite comfortably in bed. Maintaining good O2 saturations in the 90s on 2 L/m per nasal cannula. He is afebrile. Hemodynamically stable. On 11/04/2020, the patient is feeling slightly better compared to yesterday. He remains on oxygen at 2 L per minute nasal cannula. He received 2 units of convalescent plasma yesterday. The follow-up chest x-ray from today shows some limited improvement in the aeration of the right lower lobe. In terms of the blood work, the patient's d-dimer is at 3.06. White cell count is 6.4, LDH is at 366 with a CRP of 7.7. He is currently on 6 mg on a daily basis. All medications have been ordered resume. He has no specific complaints. Objective - Vital Signs Vital signs: Vital Signs Temp 97.1 F L 11/04/20 05:00 Pulse 67 11/04/20 05:00 Resp 20 11/04/20 05:00 BP 112/67 11/04/20 05:00 Pulse Ox 91 L 11/04/20 10:30 Intake & Output 11/03/20 11/04/20 11/04/20 18:59 06:59 18:59 Intake Total 1268 500 Balance 1268 500 Intake: Oral 1050 500 Blood Product 218 Ffp Pher Conval Covid19 218 Acda 2 Unit [id number] Other: Voiding Method Toilet Urinal # Voids 3 2 1 # Bowel Movements 1 1 - Exam GENERAL EXAM: Alert, very pleasant 62-year-old gentleman, on 2 L nasal cannula, comfortable in no apparent distress. HEAD: Normocephalic. EYES: Normal reaction of pupils, equal size. NOSE: Clear with pink turbinates. THROAT: No erythema or exudates. NECK: No masses, no JVD. CHEST: No chest wall deformity. LUNGS: Equal air entry with bibasilar crackles. CVS: S1 and S2 normal with no audible murmur, regular rhythm. ABDOMEN: No hepatosplenomegaly, normal bowel sounds, no guarding or rigidity. SPINE: No scoliosis or deformity SKIN: No rashes CENTRAL NERVOUS SYSTEM: No focal deficits, tone is normal in all 4 extremities. EXTREMITIES: There is no peripheral edema. No clubbing, no cyanosis. Peripheral pulses are intact. - Labs CBC & Chem 7: 11/03/20 06:20 11/03/20 06:20 Labs: Abnormal Lab Results - Last 24 Hours (Table) 11/04/20 11/04/20 Range/Units 05:17 05:17 D-Dimer 3.06 H (<0.60) mg/L FEU Lactate Dehydrogenase 366 H (120-246) U/L C-Reactive Protein 7.7 H (0.0-0.8) mg/dL Microbiology - Last 24 Hours (Table) 11/02/20 16:44 Blood Culture - Preliminary Blood No Growth after 24 hours 11/02/20 16:44 Blood Culture - Preliminary Blood No Growth after 24 hours Assessment and Plan Plan: 1 Acute hypoxic respiratory failure secondary to acute CoVID 19 pneumonitis. Initial symptoms 10/17/2020, CoVID test positive 10/25/2020. Outside the window for Remdesivir. Currently on Decadron. Clinically improved. Still on oxygen at 2 L. Chest x-ray shows a improvement in the right lower lobe aeration/infiltration. 2 Febrile illness secondary to above 3 Elevated inflammatory markers secondary to above 4 Hypertension 5 Osteoarthritis 6 History of bariatric surgery Plan: Chest x-ray, CAT scans and labs reviewed Outside the window for Remdesivir Completed transfusion with 2 units of convalescent plasma Continue dexamethasone, Lovenox, vitamin supplement Repeat chest x-ray and inflammatory markers in the a.m. We will continue to follow , possible home tomorrow with oxygen needed.
--- NOTE | 2020-11-04 15:11 | P.PN ---
Subjective Progress Note Date: 11/04/20 Patient is a 70-year-old male came in with complaints of her shortness of breath fever has been going on for about 2 weeks cough congestion patient was diagnosed with Covid 19 on the of this month. Patient was comparing of substernal pleuritic pain patient also has an episodes of nonsustained VT and PACs, PVCs, patient to magnesium is normal potassium is bit low which will be replaced and will monitor him on telemetry patient is presently on [address] angios the chest did not show any PE 11/04/2020 Patient is seen and evaluated and follow-up currently on room air as patient continues to remove his oxygen via nasal cannula. Patient states he does not feel short of breath although when nursing staff assessed his SpO2, he was 79% on room air. She was placed back on oxygen and 91% on 3 L via nasal cannula at this time. Incentive spirometer ordered and instructed the patient to continue using at least 10 times every hour while awake. Pulmonary following. Patient did receive 1 unit of convalescent plasma. Repeat chest x-ray today shows persistent bilateral multifocal acute infiltrates consistent with Covid 19 infection with the possibility of some improved aeration in the right lung base and new small left pleural effusion noted. Patient will continue with vitamin C and D supplements along with dexamethasone, Lovenox, and zinc. Will continue to monitor closely. Discussed with the patient about increasing activity as tolerated. Patient continues to request to be discharged home. D-dimer is 3.06 today. Lactate dehydrogenase is trending down along with CRP. Review of systems: Constitutional: No reports of fatigue, fever, or chills Cardiovascular: No reports of chest pain or palpitations Respiratory: No reports of shortness of breath or cough GI: No reports of nausea, vomiting, or diarrhea : No reports of dysuria or retention Neurovascular: No reports of weakness or numbness All medications have been reviewed Objective - Vital Signs Vital signs: Vital Signs Temp 97.1 F L 11/04/20 05:00 Pulse 67 11/04/20 05:00 Resp 20 11/04/20 05:00 BP 112/67 11/04/20 05:00 Pulse Ox 91 L 11/04/20 10:30 Intake & Output 11/03/20 11/04/20 11/04/20 18:59 06:59 18:59 Intake Total 1268 500 Balance 1268 500 Intake: Oral 1050 500 Blood Product 218 Ffp Pher Conval Covid19 218 Acda 2 Unit [id number] Other: Voiding Method Toilet Urinal # Voids 3 2 1 # Bowel Movements 1 1 - Exam GENERAL: The patient is alert and oriented x3, not in any acute distress. Well developed, well nourished. HEENT: Pupils are round and equally reacting to light. EOMI. No scleral icterus. No conjunctival pallor. Normocephalic, atraumatic. No pharyngeal erythema. No thyromegaly. CARDIOVASCULAR: S1 and S2 present. No murmurs, rubs, or gallops. PULMONARY: Chest is clear to auscultation, no wheezing or crackles. ABDOMEN: Soft, nontender, nondistended, normoactive bowel sounds. No palpable organomegaly. MUSCULOSKELETAL: No joint swelling or deformity. EXTREMITIES: No cyanosis, clubbing, or pedal edema. NEUROLOGICAL: Gross neurological examination did not reveal any focal deficits. SKIN: No rashes. - Labs CBC & Chem 7: 11/03/20 06:20 11/03/20 06:20 Labs: Abnormal Lab Results - Last 24 Hours (Table) 11/04/20 11/04/20 Range/Units 05:17 05:17 D-Dimer 3.06 H (<0.60) mg/L FEU Lactate Dehydrogenase 366 H (120-246) U/L C-Reactive Protein 7.7 H (0.0-0.8) mg/dL Microbiology - Last 24 Hours (Table) 11/02/20 16:44 Blood Culture - Preliminary Blood No Growth after 24 hours 11/02/20 16:44 Blood Culture - Preliminary Blood No Growth after 24 hours Assessment and Plan Assessment: -Shortness of breath, hypoxemia: Secondary to Covid 19 pneumonia patient will be continued on Decadron, Pepcid, Lovenox, vitamin C and E, and zinc supplements. inflammatory markers trending down. D-dimer continues to be elevated at 3 -Episodes of PACs and PVCs: Improved, potassium was replaced and is currently 3.6. Patient was having some chest pain and troponins were negative. Patient denies chest pain today is requesting to go home -Hypertension -DVT prophylaxis with Lovenox Plan: Continue current medications. Pulmonary is following. Incentive spirometer ordered and patient instructed to continue using at least 10 times every hour while awake. Continue to wean FiO2 as tolerated and discussed with nursing staff. Patient was found to be 79% on room air and was placed back on nasal cannula at 2-3 L and is currently 93%. Further recommendations to follow. Possible discharge in 24-48 hours.
[2020-11-04] MEDS: LORATADINE-PSEUDOEPH 5-120 MG 1 EACH TAB.ER.12H PO PRN (21:10)
[2020-11-04] MEDS: MELATONIN 5 MG TABLET PO SCH (21:10)
[2020-11-04] MEDS: guaiFENesin-DM 100-10MG/5ML 10 ML CUP PO PRN (21:10)
[2020-11-05 05:06] VITALS: RESP 18
[2020-11-05] MEDS: CHOLECALCIFEROL 1,000 UNIT TAB PO SCH (07:42)
[2020-11-05] MEDS: ASCORBIC ACID 500 MG TAB PO SCH (07:42)
[2020-11-05] MEDS: dexAMETHasone 2 MG TAB PO SCH (07:42)
[2020-11-05] MEDS: MULTIVITAMINS, THERA 1 EACH TAB PO SCH (07:43)
[2020-11-05] MEDS: ZINC SULFATE 220 MG CAP PO SCH (07:43)
[2020-11-05] MEDS: FAMOTIDINE 20 MG TAB PO SCH (07:43)
[2020-11-05] MEDS: lisinopriL 10 MG TAB PO SCH (07:43)
[2020-11-05] MEDS: ENOXAPARIN 40 MG/0.4 ML SYRINGE SQ SCH (07:43)
[2020-11-05] MEDS ORDERED: polyethylene glycoL 3350 17 GM POWD.PACK PO SCH (09:15)
--- NOTE | 2020-11-05 11:21 | P.PN ---
Subjective Progress Note Date: 11/05/20 This is a very pleasant 70-year-old gentleman who follows with Dr. Bass is his primary care provider. He has a history of hypertension, osteoarthritis, previous bariatric surgery. On October 17 or the patient developed shortness of breath, cough congestion fever, chills. After no significant i mprovement he was tested positive for CoVID 19 infection on 10/25/2020. He presented here to the emergency room yesterday with ongoing symptoms and worsening shortness of breath. He is also having some chest discomfort. EKG revealed sinus rhythm with occasional PACs. No significant ST or T wave abnormalities. CT angiogram ruled out pulmonary embolism. There was however extensive bilateral pulmonary infiltrates and mild bronchial adenopathy consistent with pneumonia. White count 6.4. Hemoglobin 13.9. Lymphocytes 0.9. D-dimer 2.31. Sodium 143. Potassium 3.6. Creatinine 0.7. LDH 1224, ferritin 809, C-reactive protein 189. Pro-calcitonin 0.17. Troponin negative 1. He's been initiated on dexamethasone, Lovenox, Pepcid, vitamin C, D and zinc. He is outside the window for Remdesivir. He is seen today in consultation on the regular medical floor. He is currently awake and alert in no acute distress. Resting quite comfortably in bed. Maintaining good O2 saturations in the 90s on 2 L/m per nasal cannula. He is afebrile. Hemodynamically stable. On 11/04/2020, the patient is feeling slightly better compared to yesterday. He remains on oxygen at 2 L per minute nasal cannula. He received 2 units of convalescent plasma yesterday. The follow-up chest x-ray from today shows some limited improvement in the aeration of the right lower lobe. In terms of the blood work, the patient's d-dimer is at 3.06. White cell count is 6.4, LDH is at 366 with a CRP of 7.7. He is currently on 6 mg on a daily basis. All medications have been ordered resume. He has no specific complaints. 11/05, the patient is stable on 3 L of oxygen by nasal cannula. He is requiring oxygen to maintain a saturation above 90%. He has no new complaints. No worsening in shortness of breath. No significant cough sputum production chest tightness or wheezing. He is using incentive spirometer. No nausea. No vomiting. No diarrhea. No abdominal pain. The d-dimer level is under 3. . The patient feels well and the patient wants to get discharged home. Possible discharge home today Objective - Vital Signs Vital signs: Vital Signs Temp 97.6 F 11/05/20 05:00 Pulse 61 11/05/20 05:00 Resp 18 11/05/20 05:00 BP 132/78 11/05/20 05:00 Pulse Ox 90 L 11/05/20 05:00 Intake & Output 11/04/20 11/05/20 11/05/20 18:59 06:59 18:59 Intake Total 480 Balance 480 Intake: Oral 480 Other: Voiding Method Toilet Toilet Urinal Urinal # Voids 2 2 # Bowel Movements 1 - Exam GENERAL EXAM: Alert, very pleasant 62-year-old gentleman, on 3 L nasal cannula, comfortable in no apparent distress. HEAD: Normocephalic. EYES: Normal reaction of pupils, equal size. NOSE: Clear with pink turbinates. THROAT: No erythema or exudates. NECK: No masses, no JVD. CHEST: No chest wall deformity. LUNGS: Equal air entry with bibasilar crackles. CVS: S1 and S2 normal with no audible murmur, regular rhythm. ABDOMEN: No hepatosplenomegaly, normal bowel sounds, no guarding or rigidity. SPINE: No scoliosis or deformity SKIN: No rashes CENTRAL NERVOUS SYSTEM: No focal deficits, tone is normal in all 4 extremities. EXTREMITIES: There is no peripheral edema. No clubbing, no cyanosis. Peripheral pulses are intact. - Labs CBC & Chem 7: 11/03/20 06:20 11/03/20 06:20 Labs: Abnormal Lab Results - Last 24 Hours (Table) 11/05/20 Range/Units 06:15 D-Dimer 2.81 H (<0.60) mg/L FEU Microbiology - Last 24 Hours (Table) 11/02/20 16:44 Blood Culture - Preliminary Blood No Growth after 48 hours 11/02/20 16:44 Blood Culture - Preliminary Blood No Growth after 48 hours Assessment and Plan Plan: 1 Acute hypoxic respiratory failure secondary to acute CoVID 19 pneumonitis. Initial symptoms 10/17/2020, CoVID test positive 10/25/2020. Outside the window for Remdesivir. Currently on Decadron. Clinically improved. Still on oxygen at 3 L. Chest x-ray shows a improvement in the right lower lobe aeration/infiltration. 2 Febrile illness secondary to above 3 Elevated inflammatory markers secondary to above 4 Hypertension 5 Osteoarthritis 6 History of bariatric surgery Plan: Chest x-ray, CAT scans and labs reviewed Outside the window for Remdesivir Completed transfusion with 2 units of convalescent plasma Continue dexamethasone, Lovenox, vitamin supplement Enzymes of his oxygenation, the patient is still requiring oxygen somewhere between 2 and 3 L to maintain a saturation above 90%. General decided to discharge this patient home, he will need home oxygen therapy in the form of a concentrator and portable tanks to maintain a saturation above 90%. He needs also to purchase a pulse oximeter. We will continue to follow , possible home today
[2020-11-05 11:29] LABS: African American GFR (CKD) 106.4 (60.0-200.0); Anion Gap 5.4 mmol/L (4.00-12.00); BUN/Creat Ratio 27.5 Ratio (12.00-20.00); Calcium 9.8 mg/dL (8.7-10.3); Carbon Dioxide 34.6 mmol/L (21.6-31.8); Non-African American GFR(CKD) 91.8 (60.0-200.0); Potassium 4.2 mmol/L (3.5-5.5)
[2020-11-05 14:01] VITALS: BP 138/79; PULSE 66; TEMP 97.5
--- NOTE | 2020-11-06 01:11 | P.DS ---
Providers Date of admission: 11/02/20 18:05 Expected date of discharge: 11/05/20 Attending physician: Doc Sexton Consults: 11/02/20 18:06 Consult Physician Urgent Consulting Provider: El Lozano Consult Reason/Comments: covid-19 infection, acute hypoxic resp failure Do you want consulting provider notified?: Yes Primary care physician: Grace Bass [facility] Course: Final diagnosis -Shortness of breath, hypoxemia: Secondary to Covid 19 pneumonia -Episodes of PACs and PVCs -Hypertension -DVT prophylaxis Discharge disposition Patient is being discharged in a stable condition with guarded prognosis to home. Patient will follow-up with Dr. Bass in the outpatient setting upon discharge. Patient will continue on Decadron 6 mg daily for the next 7 days to complete the course. Patient will continue on oral antibiotics in the form of Augmentin twice daily for the next 7 days to complete the course. Patient also instructed to follow-up outpatient with Dr. Morales. Total time taken is greater than 35 minutes. History of present illness This is a 70-year-old male who was recently admitted with shortness of breath and chest pain with episodes of non-sustained VT, PACs, and PVCs and was being closely monitored. Patient was recently diagnosed with Covid 19 on October 25 and was on zinc, vit c & d. Pulmonary following. Patient continue to require oxygen of [address] of the chest showed no evidence of PE. Patient underwent home 02 eval and was found to be 79% on room air. Case management arranged for home oxygen upon discharge due to Covd 19. Patient will also continue with decadron 6 mg daily for the next one week to complete the course. Patient also given incentive spirometer and instructed to continue using at least 10 times every hour while awake. Currently no reports of chest pain, shortness of breath, or palpitations. Patient is afebrile. No reports of nausea or vomiting and patient is tolerating diet. Patient will be going home today. On exam vital signs are stable. Temp is 97.5 F, pulse is 66, respirations are 18, blood pressure is 138/79, oxygen saturation is 94 % on 3L via NC. Cardio S1, S2 are muffled. Respiratory system shows diminished breath sounds at the bases with no wheezing or rhonchi noted. Abdomen is soft and nontender. Nervous system shows no focal deficits. Please refer to medication reconciliation sheet for a list of medications. Patient Condition at Discharge: Stable Plan - Discharge Summary Discharge Rx Participant: No New Discharge Prescriptions: New dexAMETHasone [Hexadrol] 6 mg PO DAILY 8 Days #24 tab polyethylene glycoL 3350 [Miralax] 17 gm PO DAILY powd.pack Zinc Sulfate [Orazinc] 220 mg PO DAILY 30 Days #30 cap Famotidine [Pepcid] 40 mg PO DAILY 30 Days #60 tab Acetaminophen Tab [Tylenol] 650 mg PO Q6HR PRN tab PRN Reason: Mild Pain Or Fever > 100.5 Ascorbic Acid [Vitamin C] 500 mg PO BID 30 Days #60 tab Continue Desloratadine [Clarinex] 5 mg PO DAILY Tadalafil [Cialis] 20 mg PO Q36H PRN PRN Reason: e.d. guaiFENesin-Coden 100-10MG/5ML [Robitussin AC] 10 ml PO Q8H PRN PRN Reason: Cough Fosinopril [Monopril] 10 mg PO DAILY Multivit-Min/FA/Lycopen/Lutein [Centrum Silver Men Tablet] 1 tab PO DAILY Cholecalciferol (Vitamin D3) [Vitamin D3] 125 mcg PO DAILY Discharge Medication List Desloratadine [Clarinex] 5 mg PO DAILY 02/26/19 [History] Tadalafil [Cialis] 20 mg PO Q36H PRN 02/26/19 [History] Cholecalciferol (Vitamin D3) [Vitamin D3] 125 mcg PO DAILY 11/02/20 [History] Fosinopril [Monopril] 10 mg PO DAILY 11/02/20 [History] Multivit-Min/FA/Lycopen/Lutein [Centrum Silver Men Tablet] 1 tab PO DAILY 11/02/20 [History] guaiFENesin-Coden 100-10MG/5ML [Robitussin AC] 10 ml PO Q8H PRN 11/02/20 [History] Acetaminophen Tab [Tylenol] 650 mg PO Q6HR PRN tab 11/05/20 [Rx] Ascorbic Acid [Vitamin C] 500 mg PO BID 30 Days #60 tab 11/05/20 [Rx] Famotidine [Pepcid] 40 mg PO DAILY 30 Days #60 tab 11/05/20 [Rx] Zinc Sulfate [Orazinc] 220 mg PO DAILY 30 Days #30 cap 11/05/20 [Rx] dexAMETHasone [Hexadrol] 6 mg PO DAILY 8 Days #24 tab 11/05/20 [Rx] polyethylene glycoL 3350 [Miralax] 17 gm PO DAILY powd.pack 11/05/20 [Rx] Follow up Appointment(s)/Referral(s): Grace Bass III, MD [Primary Care Provider] - 1-2 days (Appointment scheduled for 11/07/20 at 12:00 pm. This is a televisit, staff from office will call you prior to give instructions how to have televisit.) [facility] [NON-STAFF] - Patient Instructions/Handouts: Viral Pneumonia (DC), Hypoxia (GEN) Activity/Diet/Wound Care/Special Instructions: Activity Limited until follow-up Continue current diet FolLow up with primary care provider upon discharge Continue with dexamethasone until finished Continue with the use of incentive spirometer 10 times every hour while awake Continue with oxygen at 3 L nasal cannula and maintain oxygen saturation above 90% Obtain pulse oximeter monitor oxygen saturation Encourage rest and fluids Discharge Disposition: HOME SELF-CARE
[2020-11-07 19:40] LABS: LD Isoenzymes 1 17 % (19-38); LD Isoenzymes 2 34 % (30-43); LD Isoenzymes 3 18 % (16-26); LD Isoenzymes 4 7 % (3-12); LD Isoenzymes 5 24 % (3-14); Lactacte Dehydrogenase(LD) ISO 357 U/L (120-250)
== END 2020-11-05 14:29 | disposition home or self-care (01) | DRG 177 ==
LOC: EC 15:42 → 6NMEDSUR 18:05
PROVIDERS: ADMIT Internal Medicine; ATTEND Internal Medicine
PROC: XW13325 Transfusion of Convalescent Plasma (Nonautologous) into Peripheral Vein, Percutaneous Approach, New Technology Group 5 (ICD-10-PCS; principal; 2020-11-02)
DX: U07.1 COVID-19 (principal); J12.89 Other viral pneumonia; J96.01 Acute respiratory failure with hypoxia; I10 Essential (primary) hypertension; I49.3 Ventricular premature depolarization; M19.90 Unspecified osteoarthritis, unspecified site; Z98.84 Bariatric surgery status; Z88.5 Allergy status to narcotic agent; Z98.890 Other specified postprocedural states; Z83.79 Family history of other diseases of the digestive system
CPT/HCPCS: 36415; 71045; 71275; 80048; 80053; 82728; 83605; 83615; 83625; 83735; 84145; 84484; 85025; 85379; 85610; 85730; 86140; 86850; 86900; 86901; 87040; 93005; 96361; 96374; 99285

== ENCOUNTER → 2021-01-16 | Outpatient (CLI) | payer MEDICARE ==
--- NOTE | 2021-01-16 13:30 | US ---
EXAMINATION TYPE: US scrotum with doppler. Grayscale and color Doppler Duplex imaging performed of giorgio coto scrotum. DATE OF EXAM: 01/16/2021 COMPARISON: 12/15/2018 CLINICAL HISTORY: N50.819 Testicular pain. Right testicular pain x couple weeks EXAM MEASUREMENTS: TESTICLES: Right Testicle: 4.2 x 2.1 x 2.5 cm Left Testicle: 4.0 x 2.2 x 2.8 cm EPIDIDYMIS HEAD: Right Epididymis: 1.2 x 1.0 x 1.2 cm Left Epididymis: 1.0 x 1.1 x 1.5 cm Doppler performed to assess for testicular vascularity; good bilateral color flow and waveforms are s een. There is no evidence of testicular torsion. Presence of hydroceles: right 2.8cm, left 1.8cm Presence of varicoceles: no Scanned area of concern, lateral to right testicle: appears wnl as seen IMPRESSION: 1. Small bilateral hydrocele greater on the right
== END | disposition home or self-care (01) ==
LOC: RADUSWWP 12:13
PROVIDERS: ATTEND Family Medicine
DX: N43.3 Hydrocele, unspecified (principal)
CPT/HCPCS: 76870; 93975

== ENCOUNTER 2022-06-10 02:12 | Observation (INO) | payer MEDICARE ==
--- NOTE | 2022-06-10 02:42 | ED ---
Chest Pain HPI - General Chief Complaint: Chest Pain Stated Complaint: Chest Pain Time Seen by Provider: 06/10/22 02:35 Source: patient Mode of arrival: ambulatory - History of Present Illness Initial Comments: This patient is 71-year-old man who presents with complaint of substernal chest pain that woke him from sleep tonight. Complaint: chest pain Onset/Timin -: hour(s) Onset: during rest Pain Location: substernal Pain Radiation: LUE Severity: mild Quality: dull Consistency: constant Improves With: nothing Worsens With: nothing Anginal Symptoms: dyspnea Other Symptoms: palpitations Treatments Prior to Arrival: none - Related Data Home Medications Medication Instructions Recorded Confirmed Desloratadine [Clarinex] 5 mg PO DAILY 02/26/19 11/02/20 tadalafiL [Cialis] 20 mg PO Q36H PRN 02/26/19 11/02/20 Cholecalciferol (Vitamin D3) 125 mcg PO DAILY 11/02/20 11/02/20 [Vitamin D3 (5000 Iu)] Fosinopril [Monopril] 10 mg PO DAILY 11/02/20 11/02/20 Multivit-Min/FA/Lycopen/Lutein 1 tab PO DAILY 11/02/20 11/02/20 [Centrum Silver Men Tablet] guaiFENesin-Coden 100-10MG/5ML 10 ml PO Q8H PRN 11/02/20 11/02/20 [Robitussin AC] Previous Rx's Medication Instructions Recorded Acetaminophen Tab [Tylenol] 650 mg PO Q6HR PRN tab 11/05/20 Ascorbic Acid [Vitamin C] 500 mg PO BID 30 Days #60 tab 11/05/20 Famotidine [Pepcid] 40 mg PO DAILY 30 Days #60 tab 11/05/20 Zinc Sulfate [Orazinc] 220 mg PO DAILY 30 Days #30 cap 11/05/20 dexAMETHasone ORAL [Hexadrol] 6 mg PO DAILY 8 Days #24 tab 11/05/20 polyethylene glycoL 3350 [Miralax] 17 gm PO DAILY powd.pack 11/05/20 Allergies Allergy/AdvReac Type Severity Reaction Status Date / Time hydrocodone bitartrate Allergy Rash/Hives Verified 06/10/22 02:24 [From Vicodin] Review of Systems ROS Statement: Those systems with pertinent positive or pertinent negative responses have been documented in the HPI. ROS Other: All systems not noted in ROS Statement are negative. Constitutional: Denies: fever, chills Respiratory: Reports: dyspnea. Denies: cough Cardiovascular: Reports: chest pain, palpitations. Denies: orthopnea, syncope Gastrointestinal: Denies: abdominal pain, nausea, vomiting Genitourinary: Denies: dysuria, hematuria Musculoskeletal: Denies: back pain Skin: Denies: rash Neurological: Denies: headache, weakness, numbness EKG Findings - EKG Results: EKG: interpreted by SONUD, sinus rhythm (With PVC), normal axis EKG shows: bradycardia - Blocks, [place], Hypertrophy, ST Abn: Chamber hypertrophy or enlargement: only voltage criteria for left ventricular hypertrophy Past Medical History Past Medical History: GERD/Reflux, Hypertension, Osteoarthritis (OA) Additional Past Medical History / Comment(s): retinal detachment History of Any Multi-Drug Resistant Organisms: None Reported Past Surgical History: Hernia Repair, Joint Replacement, Orthopedic Surgery Additional Past Surgical History / Comment(s): numerous knee and geo feet, inguinal hernia, mojgan fundoplication Past Anesthesia/Blood Transfusion Reactions: No Reported Reaction Past Psychological History: No Psychological Hx Reported Smoking Status: Never smoker Past Alcohol Use History: None Reported Past Drug Use History: None Reported - Past Family History Mother Additional Family Medical History / Comment(s): hiatal hernia General Exam General appearance: alert, in no apparent distress Head exam: Present: atraumatic, normocephalic Eye exam: Present: normal appearance. Absent: scleral icterus, conjunctival injection Neck exam: Present: normal inspection, full ROM Respiratory exam: Present: normal lung sounds bilaterally. Absent: respiratory distress, wheezes, rales, rhonchi, stridor Cardiovascular Exam: Present: regular rate, normal rhythm, normal heart sounds. Absent: systolic murmur, diastolic murmur, rubs, gallop GI/Abdominal exam: Present: soft. Absent: distended, tenderness, guarding, rebound, rigid, mass Extremities exam: Present: normal inspection, normal capillary refill. Absent: pedal edema, calf tenderness Back exam: Present: normal inspection. Absent: CVA tenderness (R), CVA tenderness (L) Neurological exam: Present: alert Skin exam: Present: warm, dry, intact, normal color. Absent: rash Course Vital Signs 0806/10/22 06/10/22 02:22 02:55 03:00 Temperature 98 F Pulse Rate 67 57 L 51 L Respiratory 19 13 15 Rate Blood Pressure 176/87 134/84 O2 Sat by Pulse 99 Oximetry 06/10/22 06/10/22 06/10/22 03:10 03:20 03:30 Temperature Pulse Rate 56 L 53 L 53 L Respiratory 13 9 L 9 L Rate Blood Pressure 129/86 129/86 129/86 O2 Sat by Pulse 96 97 95 Oximetry 06/10/22 06/10/22 06/10/22 03:40 03:50 04:00 Temperature Pulse Rate 53 L 53 L 63 Respiratory 8 L 10 L 8 L Rate Blood Pressure 129/86 129/86 129/86 O2 Sat by Pulse 98 97 97 Oximetry 06/10/22 06/10/22 06/10/22 04:10 04:20 04:30 Temperature Pulse Rate 59 L 52 L 55 L Respiratory 13 35 H 8 L Rate Blood Pressure 121/83 120/75 110/77 O2 Sat by Pulse 96 95 97 Oximetry 06/10/22 06/10/22 06/10/22 04:40 04:50 05:00 Temperature Pulse Rate 51 L 51 L 52 L Respiratory 7 L 12 16 Rate Blood Pressure 123/83 115/75 121/73 O2 Sat by Pulse 98 97 96 Oximetry 06/10/22 06/10/22 06/10/22 05:10 05:20 05:30 Temperature Pulse Rate 49 L 49 L 51 L Respiratory 12 11 L 15 Rate Blood Pressure 121/73 127/76 121/76 O2 Sat by Pulse 99 99 Oximetry 06/10/22 06/10/22 06/10/22 05:40 05:50 06:00 Temperature Pulse Rate 55 L 51 L 58 L Respiratory 16 8 L 16 Rate Blood Pressure 114/75 121/74 128/91 O2 Sat by Pulse 98 98 99 Oximetry 06/10/22 06:10 Temperature Pulse Rate 52 L Respiratory 16 Rate Blood Pressure 140/92 O2 Sat by Pulse 98 Oximetry Disposition Clinical Impression: Chest pain Disposition: ADMITTED IP TO THIS [facility] Condition: Good Is patient prescribed a controlled substance at d/c from ED?: No
[2022-06-10 02:47] LABS: Basophils % (A) 1 %; Eosinophils # (A) 0.1 k/uL (0-0.7); Eosinophils % (A) 2 %; HCT 42.2 % (39.0-53.0); HGB 13.6 gm/dL (13.0-17.5); Lymphocytes # (A) 3.1 k/uL (1.0-4.8); Lymphocytes % (A) 36 %; MCH 31.1 pg (25.0-35.0); MCHC 32.2 g/dL (31.0-37.0); MCV 96.4 fL (80.0-100.0); Mean Platelet Volume 7.7; Monocytes # (A) 0.7 k/uL (0-1.0); Monocytes % (A) 8 %; Neutrophils # (A) 4.3 k/uL (1.3-7.7); Neutrophils % (A) 51 %; Platelet Count 220 k/uL (150-450); RBC 4.38 m/uL (4.30-5.90); RDW 12.7 % (11.5-15.5); WBC 8.5 k/uL (3.8-10.6)
[2022-06-10 03:01] LABS: Albumin 4.2 g/dL (3.5-5.0); Calcium 9.9 mg/dL (8.4-10.2); Magnesium 2.3 mg/dL (1.6-2.3); Potassium 4.1 mmol/L (3.5-5.1); Total Bilirubin 0.7 mg/dL (0.2-1.3)
[2022-06-10 03:04] LABS: INR 0.9 (<1.2); Prothrombin Time 10.1 sec (9.0-12.0)
[2022-06-10] MEDS ORDERED: NITROGLYCERIN SL TABS 0.4 MG TAB SUBLINGUAL STA (03:43)
--- NOTE | 2022-06-10 03:48 | XR ---
EXAMINATION TYPE: XR chest 2V DATE OF EXAM: 06/10/2022 COMPARISON: 11/04/2020 HISTORY: Chest pain TECHNIQUE: 2 views FINDINGS: There is no heart failure nor confluent pneumonic infiltrate. Costophrenic angles are clear . Bony thorax is intact. There is minimal linear density left lung base. IMPRESSION: Minimal subsegmental atelectasis left lung base which is mostly cleared compared to the o ld exam. Normal heart.
--- NOTE | 2022-06-10 04:55 | P.HPIM ---
History of Present Illness H&P Date: 06/10/22 The patient is a 71-year-old male with no known PMH presented to the emergency room with complaints of chest pain. The patient reports that he was in his usual state of health until about one a.m. earlier tonight when he suddenly developed pressure-like substernal chest discomfort, 10 out of 10, with associated shortness of breath, nonradiating, nonexertional, nonpleuritic, with no additional associated features. The patient reports that he continues to have 5 out of 10 substernal chest discomfort. He reports never having had such pain in the past with no history of MIs. He denied lower extremity swelling or pain. Denied recent travel or immobilization. EKG in the emergency room reveal s sinus bradycardia with PVCs at 56 bpm with T-wave inversion in lead 3 and aVF (similar to prior EKG). Laboratory evaluation was remarkable for troponin of less than 0.012. Review of systems: Pertinent positives and negatives as discussed in HPI, a complete review of systems was performed and all other systems are negative. Physical examination: General: non toxic, no distress, appears at stated age, overweight Derm: no unusual rashes/lesions, warm Head: atraumatic, normocephalic, symmetric Eyes: EOMI, no lid lag, anicteric sclera, pupils equal round reactive to light ENT: Nose and ears atraumatic Neck: No cervical lymphadenopathy, trachea midline, supple Mouth: no lip lesion, mucus membranes moist Cardiovascular: S1S2 reg, no murmur, positive dorsalis pedis pulse bilateral, no edema Lungs: CTA bilateral, no rhonchi, no rales, no accessory muscle use Abdominal: soft, nontender to palpation, no guarding Ext: muscle strength 5 out of 5 in all 4 extremities grossly, no gross muscle a trophy, no contractures, Neuro: CN II-XI grossly intact, no gross focal neuro deficits Psych: Alert, oriented, appropriate affect Assessment/plan Chest pain, rule out ACS -Cardiac monitoring -Cardiology consult -Continue with aspirin, statin -Trend troponin DVT prophylaxis -Heparin subcu The patient is admitted with an anticipated less than 2 midnight stay for evaluation of chest pain CODE STATUS: Full Code Discussed with: Patient Anticipated discharge date: in am Anticipated discharge place: Home Past Medical History Past Medical History: GERD/Reflux, Hypertension, Osteoarthritis (OA) Additional Past Medical History / Comment(s): retinal detachment History of Any Multi-Drug Resistant Organisms: None Reported Past Surgical History: Hernia Repair, Joint Replacement, Orthopedic Surgery Additional Past Surgical History / Comment(s): numerous knee and geo feet, inguinal hernia, mojgan fundoplication Past Anesthesia/Blood Transfusion Reactions: No Reported Reaction Past Psychological History: No Psychological Hx Reported Smoking Status: Never smoker Past Alcohol Use History: None Reported Past Drug Use History: None Reported - Past Family History Mother Additional Family Medical History / Comment(s): hiatal hernia Medications and Allergies Home Medications Medication Instructions Recorded Confirmed Type Desloratadine [Clarinex] 5 mg PO DAILY 02/26/19 11/02/20 History tadalafiL [Cialis] 20 mg PO Q36H PRN 02/26/19 11/02/20 History Cholecalciferol (Vitamin D3) 125 mcg PO DAILY 11/02/20 11/02/20 History [Vitamin D3 (5000 Iu)] Fosinopril [Monopril] 10 mg PO DAILY 11/02/20 11/02/20 History Multivit-Min/FA/Lycopen/Lutein 1 tab PO DAILY 11/02/20 11/02/20 History [Centrum Silver Men Tablet] guaiFENesin-Coden 100-10MG/5ML 10 ml PO Q8H PRN 11/02/20 11/02/20 History [Robitussin AC] Acetaminophen Tab [Tylenol] 650 mg PO Q6HR PRN tab 11/05/20 Rx Ascorbic Acid [Vitamin C] 500 mg PO BID 30 Days #60 tab 11/05/20 Rx Famotidine [Pepcid] 40 mg PO DAILY 30 Days #60 tab 11/05/20 Rx Zinc Sulfate [Orazinc] 220 mg PO DAILY 30 Days #30 cap 11/05/20 Rx dexAMETHasone ORAL [Hexadrol] 6 mg PO DAILY 8 Days #24 tab 11/05/20 Rx polyethylene glycoL 3350 [Miralax] 17 gm PO DAILY powd.pack 11/05/20 Rx Allergies Allergy/AdvReac Type Severity Reaction Status Date / Time hydrocodone bitartrate Allergy Rash/Hives Verified 06/10/22 02:24 [From Vicodin] Physical Exam Vitals: Vital Signs Temp Pulse Resp BP Pulse Ox 06/10/22 04:20 52 L 35 H 120/75 95 06/10/22 04:10 59 L 13 121/83 96 06/10/22 04:00 63 8 L 129/86 97 06/10/22 03:50 53 L 10 L 129/86 97 06/10/22 03:40 53 L 8 L 129/86 98 06/10/22 03:30 53 L 9 L 129/86 95 06/10/22 03:20 53 L 9 L 129/86 97 06/10/22 03:10 56 L 13 129/86 96 06/10/22 03:00 51 L 15 134/84 06/10/22 02:55 57 L 13 06/10/22 02:22 98 F 67 19 176/87 99 Intake and Output 06/09/22 06/09/22 06/10/22 14:59 22:59 06:59 Other: Weight 79.379 kg Results CBC & Chem 7: 06/10/22 02:38 06/10/22 02:38 Labs: Abnormal Lab Results - Last 24 Hours (Table) 06/10/22 06/10/22 Range/Units 02:38 02:38 D-Dimer 0.60 H (<0.60) mg/L FEU Glucose 100 H (74-99) mg/dL
[2022-06-10] MEDS ORDERED: ATORVASTATIN 80 MG TAB PO SCH (04:56)
[2022-06-10] MEDS ORDERED: ASPIRIN 325 MG TAB PO SCH (04:56)
[2022-06-10] MEDS ORDERED: NITROGLYCERIN SL TABS 0.4 MG TAB SUBLINGUAL PRN (05:12)
[2022-06-10] MEDS ORDERED: SODIUM CHLORIDE 0.9% 1,000 ML IV SCH (05:15)
[2022-06-10 07:30] VITALS: RESP 18
--- NOTE | 2022-06-10 10:06 | P.CRDCN ---
History of Present Illness Consult date: 06/10/22 History of present illness: HISTORY OF PRESENT ILLNESS: This is a 71 year old male with a past medical history significant for hypertension and GERD with previous Mojgan fundoplication. Patient does not follow with a skiver heel tap. We have been asked to see the patient in consultation for chest pain. Patient examined at the bedside. Patient states he began having chest pain a few days ago after he was doing some work with history of. Then yesterday he reports getting chest pain again in the middle of his chest. He states the pain came on when he was laying flat and states it felt like acid reflux. He states when he stands up the pain goes away on its own. He denies any shortness of breath. Denies any dizziness or lightheadedness. * EKG reveals sinus mechanism with no signs of acute ischemia * Chest xray negative for acute process * Laboratory data: WBC 8.5. Hemoglobin 13.6. Platelet count 220. D-dimer 0.60. Sodium 137. Potassium 4.1. BUN 17. Creatinine 1.1. Troponin negative 3. * Current home cardiac medications include Monopril 10 mg daily REVIEW OF SYSTEMS: At the time of my exam: CONSTITUTIONAL: Denies fever or chills. HEENT: Denies blurred vision, vision changes, or eye pain. Denies hemoptysis CARDIOVASCULAR: Denies chest pain. Denies orthopnea. Denies PND. Denies palpitations RESPIRATORY: Denies shortness of breath. GASTROINTESTINAL: Denies abdominal pain. Denies nausea or vomiting. HEMATOLOGIC: Denies bleeding disorders. GENITOURINARY: Denies any blood in urine. SKIN: Denies pruitis. Denies rash. PHYSICAL EXAM: VITAL SIGNS: Reviewed. GENERAL: Well-developed in no acute distress. HEENT: Head is normocephalic. Pupils are equal, round. Sclerae anicteric. Mucous membranes of the mouth are moist. Neck supple. No JVD or thyromegaly LUNGS: Respirations even and unlabored. Lungs essentially clear to auscultation bilaterally. HEART: Regular rate and rhythm. S1 and S2 heard. ABDOMEN: Soft. Nondistended. Nontender. EXTREMITIES: Normal range of motion. No clubbing or cyanosis. Peripheral pulses intact. No lower extremity edema NEUROLOGIC: Awake and alert. Oriented x 3. ASSESSMENT: Chest pain, atypical, troponin negative x 3 GERD with history of Mojgan fundoplication Hypertension PLAN: Acute coronary event has been ruled out No need to obtain full echocardiogram per Dr. Madrid Obtain stress echo to assess for ischemia. If negative, she may be discharged home from a cardiac standpoint Nurse practitioner note has been reviewed by physician. Signing provider agrees with the documented findings, assessment, and plan of care. Past Medical History Past Medical History: GERD/Reflux, Hypertension, Osteoarthritis (OA) Additional Past Medical History / Comment(s): retinal detachment History of Any Multi-Drug Resistant Organisms: None Reported Past Surgical History: Hernia Repair, Joint Replacement, Orthopedic Surgery Additional Past Surgical History / Comment(s): numerous knee and geo feet, inguinal hernia, mojgan fundoplication Past Anesthesia/Blood Transfusion Reactions: No Reported Reaction Past Psychological History: No Psychological Hx Reported Smoking Status: Never smoker Past Alcohol Use History: None Reported Past Drug Use History: None Reported - Past Family History Mother Additional Family Medical History / Comment(s): hiatal hernia Medications and Allergies Home Medications Medication Instructions Recorded Confirmed Type Cholecalciferol (Vitamin D3) 125 mcg PO DAILY 11/02/20 06/10/22 History [Vitamin D3 (5000 Iu)] Fosinopril [Monopril] 10 mg PO DAILY 11/02/20 06/10/22 History Multivit-Min/FA/Lycopen/Lutein 1 tab PO DAILY 11/02/20 06/10/22 History [Centrum Silver Men Tablet] Cyanocobalamin (Vitamin B-12) 3,000 mcg PO DAILY 06/10/22 06/10/22 History [Vitamin B-12] Famotidine [Zantac-360 20 mg PO DAILY 06/10/22 06/10/22 History (Famotidine)] Ondansetron Odt [Zofran Odt] 4 mg PO Q8H PRN 06/10/22 06/10/22 History Tamsulosin [Flomax] 0.4 mg PO DAILY 06/10/22 06/10/22 History cycloSPORINE 0.05% OPHTH SOLN 1 drop BOTH EYES BID 06/10/22 06/10/22 History [Restasis] traMADol HCL 50 mg PO BID 06/10/22 06/10/22 History Allergies Allergy/AdvReac Type Severity Reaction Status Date / Time hydrocodone bitartrate Allergy Rash/Hives Verified 08/03/22 09:30 [From Vicodin] Physical Exam Vitals: Vital Signs Temp Pulse Pulse Resp BP BP Pulse Ox 06/10/22 07:00 97.5 F L 57 L 18 160/86 95 06/10/22 06:28 97.6 F 55 L 17 137/75 99 06/10/22 06:10 52 L 16 140/92 98 06/10/22 06:00 58 L 16 128/91 99 06/10/22 05:50 51 L 8 L 121/74 98 06/10/22 05:40 55 L 16 114/75 98 06/10/22 05:30 51 L 15 121/76 06/10/22 05:20 49 L 11 L 127/76 99 06/10/22 05:10 49 L 12 121/73 99 06/10/22 05:00 52 L 16 121/73 96 06/10/22 04:50 51 L 12 115/75 97 06/10/22 04:40 51 L 7 L 123/83 98 06/10/22 04:30 55 L 8 L 110/77 97 06/10/22 04:20 52 L 35 H 120/75 95 06/10/22 04:10 59 L 13 121/83 96 06/10/22 04:00 63 8 L 129/86 97 06/10/22 03:50 53 L 10 L 129/86 97 06/10/22 03:40 53 L 8 L 129/86 98 06/10/22 03:30 53 L 9 L 129/86 95 06/10/22 03:20 53 L 9 L 129/86 97 06/10/22 03:10 56 L 13 129/86 96 06/10/22 03:00 51 L 15 134/84 06/10/22 02:55 57 L 13 06/10/22 02:22 98 F 67 19 176/87 99 Intake and Output 06/09/22 06/10/22 06/10/22 22:59 06:59 14:59 Other: # Voids 0 1 Weight 79.379 kg 79.379 kg Results 06/10/22 02:38 06/10/22 02:38 Cardiac Enzymes 06/10/22 06/10/22 06/10/22 Range/Units 02:38 02:38 05:33 AST 26 (17-59) U/L Troponin I <0.012 <0.012 (0.000-0.034) ng/mL 06/10/22 Range/Units 07:44 AST (17-59) U/L Troponin I <0.012 (0.000-0.034) ng/mL Coagulation 06/10/22 Range/Units 02:38 PT 10.1 (9.0-12.0) sec APTT 24.0 (22.0-30.0) sec CBC 06/10/22 Range/Units 02:38 WBC 8.5 (3.8-10.6) k/uL RBC 4.38 (4.30-5.90) m/uL Hgb 13.6 (13.0-17.5) gm/dL Hct 42.2 (39.0-53.0) % Plt Count 220 (150-450) k/uL Comprehensive Metabolic Panel 06/10/22 Range/Units 02:38 Sodium 137 (137-145) mmol/L Potassium 4.1 (3.5-5.1) mmol/L Chloride 104 (98-107) mmol/L Carbon Dioxide 29 (22-30) mmol/L BUN 17 (9-20) mg/dL Creatinine 1.11 (0.66-1.25) mg/dL Glucose 100 H (74-99) mg/dL Calcium 9.9 (8.4-10.2) mg/dL AST 26 (17-59) U/L ALT 20 (4-49) U/L Alkaline Phosphatase 106 (38-126) U/L Total Protein 7.0 (6.3-8.2) g/dL Albumin 4.2 (3.5-5.0) g/dL Current Medications Generic Name Dose Route Start Last Admin Trade Name Freq PRN Reason Stop Dose Admin Aspirin 81 mg 06/11/22 09:00 Aspirin 81 Mg PO DAILY KAMI Atorvastatin Calcium 80 mg 06/10/22 04:56 06/10/22 06:04 Atorvastatin 80 Mg Tab PO 80 mg HS KAMI Administration Sodium Chloride 1,000 mls @ 20 mls/hr 06/10/22 05:15 06/10/22 06:04 Saline 0.9% IV 20 mls/hr .Q24H KAMI Administration Nitroglycerin 0.4 mg 06/10/22 05:12 Nitroglycerin Sl Tabs 0.4 Mg Tab SUBLINGUAL Q5M PRN Chest Pain Intake and Output 06/09/22 06/10/22 06/10/22 22:59 06:59 14:59 Other: # Voids 0 1 Weight 79.379 kg 79.379 kg Patient Weight 06/11/22 06:59 Weight 79.379 kg 06/10/22 02:38 06/10/22 02:38
[2022-06-10] MEDS ORDERED: MAG HYDROX/AL HYDROX/SIMETH 30 ML, HYOSCYAMINE ELIXIR 10 ML, LIDOCAINE VISCOUS 2% 10 ML PO ONE ×3 (10:30)
--- NOTE | 2022-06-10 11:45 | CA ---
Stress Echo Report Dakotah Verdugo Age: 71 Gender: M : 1950 Exam Date: 06/10/2022 10:54 Exam Location: [facility] Stress Ht (in): 67 Wt (lb): 175 Ordering Physician: Sherry Giron Referring Physician: ,, Taxation Consultant: Lynn Meade RDCS Technologist Procedure CPT: Indication: Chest Pain ICD-9 Codes: Rhythm: Patient History: Cardiac Medications: Medications in past 24 hours: Contrast: Lumason Stress Results Protocol: Haim Total dose(mL): 5 Exercise Duration (min:sec): Max ST Depression (mm): Angina Score: Webster Score: METS: 6.4 Resting HR: 100 Resting BP: 163 / 78 Peak HR: 141 Peak BP: 196 / 90 Max Predicted HR: 151 93 % Max Predicted HR Target HR: 128 Double Product: 18323 Stress Summary: BP Response: Reason for Termination: Reached target heart rate or work-load Cardiac Symptoms: Test terminated after reaching target heart rate (85% max predicted) ECG Analysis Resting ECG: Stress ECG: Arrhythmia: Echo Analysis Resting Echo: Peak Echo Analysis: MEASUREMENTS (Male/Female) Normal Values CONCLUSIONS Baseline heart is 65 beats a minute, Baseline blood pressure 163/78 mmHg Baseline twelve-lead EKG showed sinus rhythm without any ST segment abnormalities Patient exercised on a Haim protocol for only 4 minutes 40 seconds, low workload achieved Peak heart rate 147 beats a minute, peak blood pressure 196/90 mmHg PVCs and ventricular couplets noted during stress testing No ECG evidence for ischemia Baseline echo images were suboptimal and Definity contrast was used Excellent augmentation of overall LV contractility without developing any wall motion abnormalities at peak exercise as well as during recovery No echocardiographic evidence for ischemia Dr. Harley Madrid MD (Electronically Signed) Final Date: 10 June 2022 11:44
[2022-06-10 13:59] VITALS: BP 124/78; PULSE 74; TEMP 97.8
--- NOTE | 2022-06-10 14:20 | P.DS ---
Providers Date of admission: 06/10/22 05:12 Expected date of discharge: 06/10/22 Attending physician: Kaitlyn Pérez MD Consults: 06/10/22 05:12 Consult Physician Routine Consulting Provider: Rajesh Morales Consult Reason/Comments: chest pain Do you want consulting provider notified?: Yes Primary care physician: Grace Etienne [facility] Course: Discharge Diagnosis: Chest pain, acute coronary event ruled out GERD, patient to continue Zantac 20 mg daily and discharged home on Carafate 1 g by mouth before meals at bedtime. Patient was educated on the importance of remaining upright after meals as well as eating smaller more frequent meals to prevent acid reflux. Patient to follow up outpatient with GI. Hypertension Hospital Course: Patient is a very pleasant 71-year-old male with a past medical history of hypertension and GERD status post Sam fundoplication. He presented to the e mergency department with a chief complaint of chest pain. Reports sudden onset chest pressure to midsternal chest accompanied by shortness of breath and nausea. Patient reports this is very intense and could feel burning all the way through his chest up into his neck. He underwent full evaluation in the emergency department. EKG was completed showing sinus bradycardia at 56 8/m with frequent PACs. Chest x-ray revealing minimal subsegmental atelectasis of left lung base which is mostly cleared when compared to previous examination. CBC, coags, and CMP normal findings. D-dimer 0.60 which is age-appropriate. Troponin negative at less than 0.012. Patient admitted under our services with consultation to cardiology. Patient monitored overnight. Troponins were trended all negative at less than 0.0123 draws. Lipid profile unremarkable. Patient underwent stress echo which was negative showing no evidence on EKG for ischemia and no echocardiographic evidence for ischemia. Cardiology recommending patient be started on atorvastatin 40 mg daily and follow-up outpatient in our office in 1-2 weeks. Patient is medically stable at this time. Patient was given GI cocktail this morning consisting of Maalox, hyoscyamine, and lidocaine resulting in full resolution of chest pain/burning. Patient instructed to continue Zantac 20 mg daily and discharged home on Carafate 1 g by mouth before meals and at bedtime. Patient was educated on the importance of remaining upright after meals as well as eating smaller more frequent meals to prevent acid reflux. Patient to follow up outpatient with GI, PCP, and cardiology. Physical examination Patient seen and examined at bedside. Vital signs reviewed and stable. General: Nontoxic, no distress and appears stated age. Derm: Skin warm and dry, normal coloration for ethnicity. Head: Atraumatic, normocephalic and symmetric. Eyes: EOMs intact, no lid lag, and anicteric sclera Mouth: no lip lesions, mucus membranes moist Cardiovascular: regular rate and rhythm with normal S1S2, no murmur, positive posterior tibial pulses bilaterally, and cap refill < 2 seconds. Lungs: Respirations even, regular, and unlabored on room air. Lungs CTA bilaterally, no rhonchi, no rales, no wheezing, and no accessory muscle usage. Abdominal: soft, nontender to palpation, no guarding, no appreciable organomegaly Ext: ROM intact. No gross muscle atrophy, no edema, no contractures Neuro: Speech clear, face symmetrical and CN II-XII grossly intact with no noted focal neuro deficits Psych: Alert and oriented to person, place, time, and situation. Appropriate and pleasant affect. A total of 39 minutes of time were spent preparing this complex discharge summary. Pt was discharged on 06/10/22 at 2:19 PM. I reviewed the documentation as provided by the [email or web address] above, who is the original author of this note. I agree with the documented assessment and plan, with the following changes: none Patient Condition at Discharge: Stable Plan - Discharge Summary Discharge Rx Participant: No New Discharge Prescriptions: New Sucralfate [Carafate] 1 gm PO ACHS 30 Days #120 g Atorvastatin [Lipitor] 40 mg PO DAILY 30 Days #30 tablet Continue Fosinopril [Monopril] 10 mg PO DAILY Multivit-Min/FA/Lycopen/Lutein [Centrum Silver Men Tablet] 1 tab PO DAILY Cholecalciferol (Vitamin D3) [Vitamin D3 (5000 Iu)] 125 mcg PO DAILY Famotidine [Zantac-360 (Famotidine)] 20 mg PO DAILY cycloSPORINE 0.05% OPHTH SOLN [Restasis] 1 drop BOTH EYES BID traMADol HCL 50 mg PO BID Ondansetron Odt [Zofran ODT] 4 mg PO Q8H PRN PRN Reason: Nausea And Vomiting Cyanocobalamin (Vitamin B-12) [Vitamin B-12] 3,000 mcg PO DAILY Tamsulosin [Flomax] 0.4 mg PO DAILY Discharge Medication List Cholecalciferol (Vitamin D3) [Vitamin D3 (5000 Iu)] 125 mcg PO DAILY 11/02/20 [History] Fosinopril [Monopril] 10 mg PO DAILY 11/02/20 [History] Multivit-Min/FA/Lycopen/Lutein [Centrum Silver Men Tablet] 1 tab PO DAILY 11/02/20 [History] Atorvastatin [Lipitor] 40 mg PO DAILY 30 Days #30 tablet 06/10/22 [Rx] Cyanocobalamin (Vitamin B-12) [Vitamin B-12] 3,000 mcg PO DAILY 06/10/22 [History] Famotidine [Zantac-360 (Famotidine)] 20 mg PO DAILY 06/10/22 [History] Ondansetron Odt [Zofran ODT] 4 mg PO Q8H PRN 06/10/22 [History] Sucralfate [Carafate] 1 gm PO ACHS 30 Days #120 g 06/10/22 [Rx] Tamsulosin [Flomax] 0.4 mg PO DAILY 06/10/22 [History] cycloSPORINE 0.05% OPHTH SOLN [Restasis] 1 drop BOTH EYES BID 06/10/22 [History] traMADol HCL 50 mg PO BID 06/10/22 [History] Follow up Appointment(s)/Referral(s): Harley Madrid MD [STAFF PHYSICIAN] - 1 Week (office will call with appointment ) Grace Bass III, MD [Primary Care Provider] - 1-2 days Donna Thompson MD [STAFF PHYSICIAN] - 1 Week (make an appointment for follow up on GERD) Patient Instructions/Handouts: Chest Pain (ED) Activity/Diet/Wound Care/Special Instructions: Activity: As tolerated. Take breaks as needed. Diet: Heart healthy and carb consistent diet. Avoid salts, or foods with hidden salts such as canned or boxed foods and frozen dinners. Extra salt makes your heart work harder and traps the fluid in your body for longer. Special Instructions: Take all of your medications as directed and remember to keep all of your doctor's appointments and follow-up as needed. Thank you for allowing us to participate in your care, it was truly a pleasure having you for our patient!!! Discharge Disposition: HOME SELF-CARE
[2022-06-10 17:07] LABS: Chol/HDL Ratio 2.39 Ratio; LDL Cholesterol,Calculated 80.1 mg/dL (0.0-131.0); VLDL Calculation 18.88 mg/dL (5.00-40.00)
[2022-06-10] MEDS ORDERED: cycloSPORINE 0.05% OPHTH 0.4 ML DROPERETTE BOTH EYES SCH (21:00)
[2022-06-10] MEDS ORDERED: traMADol 50 MG TAB PO SCH (21:00)
[2022-06-11] MEDS ORDERED: ASPIRIN 81 MG PO SCH (09:00)
[2022-06-11] MEDS ORDERED: CYANOCOBALAMIN 500 MCG TAB PO SCH (09:00)
[2022-06-11] MEDS ORDERED: CHOLECALCIFEROL 125 MCG (5000 IU) TABLET PO SCH (09:00)
[2022-06-11] MEDS ORDERED: ASPIRIN 325 MG TAB PO SCH (09:00)
[2022-06-11] MEDS ORDERED: TAMSULOSIN 0.4 MG CAP.ER.24H PO SCH (09:00)
[2022-06-11] MEDS ORDERED: lisinopriL 10 MG TAB PO SCH (09:00)
== END 2022-06-10 15:25 | disposition home or self-care (01) ==
LOC: EC 02:12 → 6NMEDSUR 05:12
PROVIDERS: ADMIT Internal Medicine; ATTEND Internal Medicine
DX: R07.89 Other chest pain (principal); K21.9 Gastro-esophageal reflux disease without esophagitis; I11.9 Hypertensive heart disease without heart failure; I49.3 Ventricular premature depolarization; R00.1 Bradycardia, unspecified; M19.90 Unspecified osteoarthritis, unspecified site; R06.02 Shortness of breath; Z79.899 Other long term (current) drug therapy; Z88.5 Allergy status to narcotic agent; Z86.69 Personal history of other diseases of the nervous system and sense organs; Z96.60 Presence of unspecified orthopedic joint implant; Z87.19 Personal history of other diseases of the digestive system; Z98.890 Other specified postprocedural states; Z83.79 Family history of other diseases of the digestive system
CPT/HCPCS: 99285; 36415; 93005; 85379; 80061; 80053; 83735; 84484; 85025; 85610; 85730; 71046; G0378; C8930; Q9950; 93351

== ENCOUNTER 2023-11-11 08:55 | Day surgery (SDC) | payer MEDICARE ==
[2023-11-05 10:19] VITALS: BMI 27.2
[~2023-11-11 08:55] MED LIST: LACTATED RINGERS 1,000 ML IV SCH
[2023-11-11 09:51] VITALS: TEMP 97.4
[2023-11-11] MEDS ORDERED: PROPOFOL 10 MG/ML 20 ML VIAL IV ONE (10:10)
[2023-11-11] MEDS ORDERED: LIDOCAINE 1% INJ 10MG/ML (20 ML MDV) ONE (10:10)
--- NOTE | 2023-11-11 10:38 | P.OP ---
Date of Procedure: 11/11/23 Preoperative Diagnosis: GERD gi Bleed Postoperative Diagnosis: Antral gastritis No evidence of recurrent hiatal hernia Normal colon Procedure(s) Performed: EGD Colonoscopy Anesthesia: MAC Surgeon: Truong Mancilla Pathology: other (Antrum) Condition: stable Disposition: PACU Description of Procedure: The patient's placed on the endoscopy table in the lateral position. He received IV sedation. The gastro-/oropharynx passed in the esophagus and stomach. Scope was placed through the pylorus. First and second portion of the duodenum appeared normal. Scope was then brought back the antrum and this appeared mildly inflamed. A biopsies performed. The scope was unretroflexed and remainder the stomach appeared normal. There was no evidence of a recurrent hiatal hernia. The GE junction was at 30 cm. The distal esophagus appeared normal. The proximal esophagus appeared normal. Scope withdrawn for patient. Next digital rectal exam was performed. This revealed no abnormalities. The flexible colonoscope was then placed patient anus passed throughout the entire colon. The ileocecal valve was visualized. The cecum, ascending and transverse colon appeared normal. The descending and sigmoid colon appeared normal. Rectum appeared normal. Scope was then withdrawn from patient.
[2023-11-11 10:40] VITALS: RESP 16
[2023-11-11 11:03] VITALS: BP 125/72; PULSE 50
== END 2023-11-11 11:08 | disposition home or self-care (01) ==
LOC: ORWHC2ENDO 08:55
PROVIDERS: ATTEND Surgery
DX: K29.50 Unspecified chronic gastritis without bleeding (principal); K21.00 Gastro-esophageal reflux disease with esophagitis, without bleeding; Z88.5 Allergy status to narcotic agent; Z79.899 Other long term (current) drug therapy; Z83.79 Family history of other diseases of the digestive system
CPT/HCPCS: 88305; 45378; 43239; J2001; J2704